=== PATIENT | female | born 1950 | race Caucasian/White ===

== ENCOUNTER 2017-11-21 17:42 | Inpatient (IN) | payer MEDICARE, OTHER ==
[2017-11-21] MEDS ORDERED: Morphine 2 MG/ML SYRINGE ONE (18:50)
[2017-11-21 19:04] LABS: #Basophils 0.1 thou/uL (0.0-0.2); #Lymphocytes 1.4 thou/uL (1.20-3.40); #Monocytes 0.8 thou/uL (0.11-0.59); #Neutrophils 8.9 thou/uL (1.40-6.50); %Basophils 0.5 % (0.0-1.0); %Eosinophils 0.4 % (0.0-10.0); %Lymphocytes 12.3 % (21.0-51.0); %Monocytes 7.3 % (0.0-10.0); %Neutrophils 79.5 % (42.0-75.0); Hemoglobin 13.2 g/dL (12.0-16.0); Mean Corpuscular HGB CONC 32.7 g/dL (32.0-36.0); Mean Corpuscular Hemoglobin 32.3 pg (27.0-31.0); Mean Corpuscular Volume 98.8 fl (81.0-99.0); Mean Platelet Volume 7.1 fL (7.4-10.4); Platelet Count 294 thou/uL (130-400); RBC Distribution Width 13.1 % (11.5-14.5); Red Blood Cell (RBC) Count 4.09 mill/uL (4.20-5.40); White Blood Cell (WBC) Count 11.1 thou/uL (4.8-10.8)
[2017-11-21] MEDS ORDERED: Ondansetron HCl/PF 4 MG/2 ML Vial ONE (19:09)
[2017-11-21 19:13] LABS: PTT 27.2 SEC (22.9-36.1); Prothrombin Time 13.3 SEC (12.0-14.7)
--- NOTE | 2017-11-21 19:20 | RAD ---
AP PELVIS: History: Hip pain, fall. Comparison: None. FINDINGS: There is an intratrochanteric fracture of the left femur with mild varus angulation. It is impacted w ith displacement of the lessor trochanter. IMPRESSION: Impacted varus angulated intertrochanteric fracture of the left femur. POS: [facility]
[2017-11-21 19:22] LABS: ALT (SGPT) 14 U/L (8-55); AST (SGOT) 17 U/L (5-34); Albumin 4.4 g/dL (3.4-4.8); Alkaline Phosphatase 68 U/L (40-150); Anion Gap 14 mmol/L (10-20); BUN (Urea Nitrogen) 30 mg/dL (9.8-20.1); Bilirubin, Total 0.4 mg/dL (0.2-1.2); Calc. Creatinine Clearance 0 mL/min (70-130); Calcium 10.7 mg/dL (7.8-10.44); Carbon Dioxide 25 mmol/L (23-31); Chloride 105 mmol/L (98-107); Estimated GFR-MDRD 36; Globulin 3.2 g/dL (2.4-3.5); Glucose 119 mg/dL (80-115); Potassium 4.3 mmol/L (3.5-5.1); Protein, Total 7.6 g/dL (6.0-8.3); Sodium 140 mmol/L (136-145)
--- NOTE | 2017-11-21 19:24 | RAD ---
LEFT HIP TWO VIEWS: History: Pain. Comparison: None. FINDINGS: There is a comminuted varis angulated impacted intertrochanteric fracture of the left femur. There is medial displacement of the lesser trochanter. The left obturator ring is intact. IMPRESSION: Impacted varis angulated mildly displaced intertrochanteric fracture left femur. POS: [facility]
--- NOTE | 2017-11-21 19:46 | HP ---
DATE OF ADMISSION: 11/21/2017 REQUESTING PHYSICIAN: Dr. Mcgee. ATTENDING PHYSICIAN: Dr. Sapp CONSULTATIONS: Orthopedics, Dr. Garduno HISTORY OF PRESENT ILLNESS: The patient is a 67-year-old woman, who was reportedly wearing socks on a hardwood floor when she slipped and fell landing on her left hip. The patient was marquis t to the emergency department, evaluated, examined and noted to have a left hip fracture at which wiliam aubrey we were asked to evaluate the patient for admission and obtain orthopedic consultation. The patien t denies loss of consciousness or striking her head. She denies shortness of breath, chest pain or d izziness prior to her fall or after. ALLERGIES: . CURRENT MEDICATIONS: Crestor, Benicar, Calcitriol, Prolia. The patient is also currently on a Medro l Dosepak. PAST MEDICAL HISTORY: Hypercalcemia, hyperlipidemia, hypertension, renal disease, stage 3 chronic ki dney disease, anxiety. PAST SURGICAL HISTORY: Bladder sling, vaginal D&C, cholecystectomy. SOCIAL HISTORY: The patient denies drug, alcohol or tobacco use. FAMILY HISTORY: Diabetes and hypertension. REVIEW OF SYSTEMS: A ten-point review of systems is negative unless otherwise stated. PHYSICAL EXAMINATION: VITAL SIGNS: Blood pressure 156/92, heart rate 90, respirations 16, oxygen saturation 98% on room ai r, temperature is 98.6. GENERAL: The patient is resting comfortably in bed. She is alert and oriented x3. Jadon coma sca le is 15. HEENT: Head is normocephalic, atraumatic. Eyes: Extraocular motion intact. PERRLA bilaterally. E ars are atraumatic without discharge. Nose is atraumatic without discharge. Oropharynx is clear. NECK: Nontender. Trachea is midline. No JVD. CHEST: Clear to auscultation with good inspiratory and expiratory effort. HEART: Regular rate and rhythm. ABDOMEN: Soft, flat, nontender with active bowel sounds. Pelvis is stable with tenderness to palpat ion to the left hip consistent with her fracture. BACK: By report is nontender and atraumatic. EXTREMITIES: Neurovascularly intact x4. Pulses are 2+. LABORATORY FINDINGS: White blood cell count 11.1, hemoglobin 13.2, hematocrit 40.4, platelets 294. Chemistries are pending. The patient also has chest x-ray and EKG that are pending. RADIOGRAPHIC REPORTS: AP pelvis shows a displaced left femoral neck fracture. Two views of the left hip again showed a left femoral neck fracture. ASSESSMENT AND PLAN: 1. Status post ground level fall. 2. Left displaced hip fracture. 3. History of stage 3 chronic kidney disease. 4. History of hypertension. Plan will be to admit the patient to the surgical floor. Consultation with Dr. Garduno. He would li ke to do operative intervention tomorrow, so we will make the patient n.p.o. after midnight. She juanpablo l be admitted to the floor for pain control, pulmonary toilet, gastritis and mechanical DVT prophylax is. The evaluation, examination, laboratory and radiographic findings were discussed with Dr. Sapp at the time of dictation.
[2017-11-21 20:40] LABS: Bilirubin Negative (Negative); Blood, Urine Negative (Negative); Clarity CLEAR (Clear); Glucose, Urine (Dipstick) Negative (Negative); Leukocyte Negative (Negative); Nitrite Negative (Negative); Protein, Urine (Dipstick) Negative (Neg-Trace); Urobilinogen 0.2 mg/dL (0.2-1.0)
--- NOTE | 2017-11-21 21:11 | RAD ---
CHEST ONE VIEW: History: Pre op. Comparison: None. FINDINGS: Lungs are clear. No pneumothorax or effusion. Cardiac silhouette and mediastinal contours are within normal limits. Upper lobe calcified granuloma. Atelectasis of the lingula. Likely noncompressive deformity of the midthoracic spine. IMPRESSION: No acute intrathoracic abnormality. POS: [facility]
[2017-11-21] MEDS ORDERED: Morphine 4 MG/ML VIAL ONE (22:52)
[2017-11-21] MEDS ORDERED: Sodium Chloride 0.9% 1,000 ML IV SCH (23:50)
[2017-11-21] MEDS ORDERED: Ondansetron HCl/PF 4 MG/2 ML Vial IVP PRN (23:50)
[2017-11-21] MEDS ORDERED: Acetaminophen 325 MG TAB PO PRN (23:50)
[2017-11-21] MEDS ORDERED: Morphine 4 MG/ML VIAL SLOW IVP PRN (23:50)
[2017-11-21] MEDS ORDERED: Ondansetron ODT 4 MG TAB SL PRN (23:50)
[2017-11-22] MEDS ORDERED: Ondansetron HCl/PF 4 MG/2 ML Vial IVP PRN ×3 (00:09→17:05)
[2017-11-22] MEDS ORDERED: Dextrose 50% Abboject 50 ML SYRINGE SLOW IVP PRN (00:09)
[2017-11-22] MEDS ORDERED: HYDROcodone/Acetaminophen 10/325 mg Tablet PO PRN ×2 (00:09)
[2017-11-22] MEDS ORDERED: hydrALAZINE 20 MG/ML VIAL SLOW IVP PRN (00:09)
[2017-11-22] MEDS ORDERED: Dextrose 5% in Water 1,000 ML IV PRN (00:09)
[2017-11-22] MEDS ORDERED: Ondansetron ODT 4 MG TAB PO PRN ×2 (00:09→16:26)
[2017-11-22] MEDS ORDERED: Morphine 4 MG/ML VIAL SLOW IVP PRN (00:09)
[2017-11-22] MEDS ORDERED: Morphine 2 MG/ML SYRINGE IVP PRN (00:09)
[2017-11-22] MEDS ORDERED: CEFAZOLIN/Water 2 GM/20 ML SYRINGE SLOW IVP SCH (00:15)
[2017-11-22] MEDS ORDERED: Sodium Chloride 0.9% 1,000 ML IV SCH (00:15)
[2017-11-22] MEDS ORDERED: Hydrocortisone Sod Succ/PF 100 mg/2 ml Vial IVP SCH (00:15)
[2017-11-22] MEDS ORDERED: Famotidine 20 MG TAB PO SCH (00:30)
[2017-11-22] MEDS ORDERED: Morphine 2 MG/ML SYRINGE SLOW IVP PRN (00:48)
[2017-11-22 00:51] LABS: Troponin I Less than 0.010 ng/mL (< 0.028)
--- NOTE | 2017-11-22 01:26 | PRG ---
DATE OF SERVICE: 11/22/2017 SUBJECTIVE: Jena Ontiveros is a 67-year-old female who sustained a mechanical fall once in 2018. She wa s found to have hip fracture and admitted for operative management of her injury. Patient was hemody namically stable in the emergency room; however, just prior to her transfer to the floor, she was giv en 4 mg of morphine IV. Upon arrival to the floor, the staff had a difficult time obtaining a blood pressure. Eventually, they were able to get a systolic blood pressure. Blood pressure is approximat julia 70/40 at which time I was called. Additionally, the patient had chief complaint of chest tightne ss. Upon my evaluation, the patient is alert and oriented x3. She has no diaphoresis. She describe s her chest discomfort as a band-like tightness that wraps around the entirety of her anterior chest. She states that she had similar discomfort associated with her gallbladder many years ago. Most re cent blood pressure is 77/46. The patient states the pain has been present since after her fall; how ever, during her admission, she denied any chest pain or discomfort. The patient states the pain chiu s not travel or radiate. There is no associated back pain. She localizes no other complaint. PHYSICAL EXAMINATION: VITAL SIGNS: Blood pressure as above, heart rate in the 70s, respirations 16, O2 sat 97% on room air . GENERAL: The patient is resting in bed, alert and oriented x3. PULMONARY: Normal work of breathing. LUNGS: Symmetric rise. Breathing is nonlabored. ABDOMEN: Soft, nontender, nondistended. MUSCULOSKELETAL: Moves all extremities x4. NEUROLOGIC: No focal deficits noted. GCS is 15. ASSESSMENT AND PLAN: Acute hypotension. EKG has been obtained. There is no evidence of non-ST elev ated myocardial infarction. Patient has received a 250 mL fluid bolus. Last systolic blood pressure is 95 with a mean arterial pressure of 70. Urine output has been 400 mL since placement of Bull. The patient states that band-like chest discomfort has improved. Cardiac enzymes and serum cortisol have been ordered and have been drawn by labs. Patient is to receive 100 mg of IV hydrocortisone at this time. We will follow laboratory data. Trauma attending has been notified of incident. If trop onins within normal limits, patient to remain on surgical floor. We will continue to monitor. Analisa angeles laboratory findings and blood pressure closely. Assessment and plan have been discussed with the patient and daughter at bedside who are both in agre ement and vocalized their understanding. Additional time at bedside, 28 minutes.
[2017-11-22 01:52] VITALS: BMI 30.6
[2017-11-22] MEDS: Hydrocortisone Sod Succ/PF 100 mg/2 ml Vial IVP SCH ×3 (02:13→18:21)
[2017-11-22] MEDS: Sodium Chloride 0.9% 1,000 ML IV SCH ×2 (02:14→18:28)
[2017-11-22] MEDS ORDERED: Sodium Chloride 0.9% 250 ML IV SCH (04:30)
[2017-11-22 05:36] LABS: #Lymphocytes 0.7 thou/uL (1.20-3.40); #Monocytes 0.9 thou/uL (0.11-0.59); %Eosinophils 0.2 % (0.0-10.0); %Lymphocytes 5.2 % (21.0-51.0); %Monocytes 6.4 % (0.0-10.0); %Neutrophils 88.2 % (42.0-75.0); Hemoglobin 10.7 g/dL (12.0-16.0); Mean Corpuscular HGB CONC 32.7 g/dL (32.0-36.0); Mean Corpuscular Hemoglobin 32.4 pg (27.0-31.0); Mean Platelet Volume 7.5 fL (7.4-10.4); Platelet Count 235 thou/uL (130-400); RBC Distribution Width 13.1 % (11.5-14.5); White Blood Cell (WBC) Count 13.6 thou/uL (4.8-10.8)
[2017-11-22 06:04] LABS: Anion Gap 14 mmol/L (10-20); BUN (Urea Nitrogen) 26 mg/dL (9.8-20.1); Calc. Creatinine Clearance 55 mL/min (70-130); Calcium 9.4 mg/dL (7.8-10.44); Carbon Dioxide 21 mmol/L (23-31); Chloride 108 mmol/L (98-107); Estimated GFR-MDRD 48; Glucose 139 mg/dL (80-115); Potassium 4.2 mmol/L (3.5-5.1); Sodium 139 mmol/L (136-145)
[2017-11-22 06:09] LABS: CKMB 0.9 ng/mL (0-6.6); Troponin I Less than 0.010 ng/mL (< 0.028)
[2017-11-22] MEDS ORDERED: Prevnar 13-Val Conj/PF 0.5 ML SYRINGE IM ONE (09:00)
--- NOTE | 2017-11-22 13:25 | CON ---
DATE OF CONSULTATION: 11/22/2017 HISTORY OF PRESENT ILLNESS: Ms. Ontiveros is a 67-year-old white female who was at home. She is wearing socks and slipped on the hardwood floor and fell onto her left hip, had immediate pain, deformity in the left hip. The patient was brought to the emergency room, which revealed a displaced intertrochan teric fracture of the left hip. The patient has no neurologic complaints in the left lower extremity . No other complaints elsewhere. PAST MEDICAL HISTORY: Medical illnesses are hypertension, renal disease, hyperlipidemia, anxiety. CURRENT MEDICATIONS: Crestor, Benicar, calcitriol, Prolia. The patient currently is on a Medrol Dos epak. ALLERGIES: . PAST SURGICAL HISTORY: Bladder sling, vaginal D&C and cholecystectomy. PHYSICAL EXAMINATION: GENERAL: The patient is a pleasant white female, alert and oriented x3, cooperative with the examina tion. VITAL SIGNS: Patient is afebrile. Latest vital signs, pulse 78, respiratory rate 14, blood pressure 121/80, O2 saturation 96. EXTREMITIES: The patient is able to move both upper extremities without pain. She is able to move t he right lower extremity without pain. The left lower extremity is shortened and externally rotated. No attempts were made at movement of the left hip since known she has a fracture, the left foot is neurovascularly intact. X-RAY FINDINGS: X-rays were reviewed and the patient has a displaced shortened intertrochanteric fra cture of the left hip. IMPRESSION: 1. Displaced intertrochanteric fracture of the left hip. 2. Stage 3 chronic kidney disease. 3. Hypertension. PLAN: The patient will require open reduction internal fixation of the left hip. Potential risks wi th the condition of surgery include but are not limited to infection, bleeding, pain, damage to blood vessels or nerves, nonunion, malunion. The patient may require additional surgery. The patient and her family's questions were answered and agreed to the procedure.
[2017-11-22] MEDS ORDERED: Fentanyl 100 MCG/2 ML VIAL ONE (13:56)
[2017-11-22] MEDS ORDERED: CEFAZOLIN/Water 2 GM/20 ML SYRINGE ONE (14:22)
[2017-11-22] MEDS ORDERED: traMADol HCl 50 MG TAB PO PRN (16:26)
[2017-11-22] MEDS ORDERED: Bisacodyl 10 MG SUPP PR PRN (16:26)
[2017-11-22] MEDS ORDERED: Fleet Enema 133 ML BOT PR PRN (16:26)
[2017-11-22] MEDS ORDERED: Milk Of Magnesia 30 ML UDCUP PO PRN (16:26)
[2017-11-22] MEDS ORDERED: Cepastat Lozenges 1 LOZ PO PRN (16:26)
--- NOTE | 2017-11-22 16:53 | RAD ---
TWO INTRAOPERATIVE FLUOROSCOPIC IMAGES LEFT HIP: Date: 11-22-17 History: ORIF left hip. FINDINGS: Comparison is made with left hip from 11-21-17. There is an intramedullary perla with dynamic compression type screw as well as interlocking screw fixi ng the intertrochanteric left hip fracture. There has been improvement in alignment of the fracture f ragments. No hardware complication is seen. IMPRESSION: Internal fixation of intertrochanteric left hip fracture. POS: [facility]
[2017-11-22] MEDS ORDERED: Ketorolac Tromethamine 30 MG/ML VIAL ONE (16:54)
[2017-11-22] MEDS ORDERED: Dexamethasone 20 MG/5 ML VIAL ONE (16:54)
[2017-11-22] MEDS ORDERED: Glycopyrrolate 0.2 MG/ML 5 ML SYRINGE ONE (16:54)
[2017-11-22] MEDS ORDERED: ePHEDrine/0.9% NaCl/PF SYRINGE 50 mg/10 ml ONE (16:54)
[2017-11-22] MEDS ORDERED: Lidocaine 1% PF 5 ML VIAL ONE (16:54)
[2017-11-22] MEDS ORDERED: PHENYLEPHRINE-NS 100 MCG/ML 10 ML SYRINGE ONE (16:54)
[2017-11-22] MEDS ORDERED: Ondansetron HCl/PF 4 MG/2 ML Vial ONE (16:54)
[2017-11-22] MEDS ORDERED: Propofol 200 MG/20 ML VIAL ONE (16:54)
[2017-11-22] MEDS ORDERED: Promethazine HCl 25 MG/ML VIAL IM PRN (17:05)
[2017-11-22] MEDS ORDERED: Promethazine HCl 25 MG/ML VIAL SLOW IVP PRN (17:05)
[2017-11-22] MEDS ORDERED: Ketorolac Tromethamine 30 MG/ML VIAL IVP SCH (18:00)
[2017-11-22] MEDS ORDERED: Cyclobenzaprine 10 MG TAB PO PRN (18:51)
--- NOTE | 2017-11-22 19:51 | OP ---
DATE OF OPERATION: 11/22/2017 PREOPERATIVE DIAGNOSIS: Displaced intertrochanteric fracture of the left hip. POSTOPERATIVE DIAGNOSIS: Displaced intertrochanteric fracture of the left hip. PROCEDURE: Open reduction and internal fixation of intertrochanteric fracture of the left hip utiliz ing a trochanteric fixation nail. SURGEON: Jabari Garduno M.D. ANESTHESIA: General. TECHNIQUE: The patient was given preoperative IV antibiotics, taken to the operating room, and place d in supine position. Satisfactory general anesthesia was performed. The patient was placed on the fracture table in the supine position and all bony prominences were well padded and traction was appl ied to a well-padded left foot and ankle and C-arm was used to verify good alignment of the intertroc hanteric fracture of the left proximal femur AP, lateral, and multiple oblique views. Lateral aspect of the hip and thigh was then sterilely prepped and draped in usual fashion. A 2.5 incision was mad e on the lateral aspect of the hip just proximal to the greater trochanter; where under fluoroscopic visualization, a guide pin was placed to the greater trochanter. Once appropriate placement was conf irmed, the wire was overreamed and then a 9 mm x 170 mm in length trochanteric fixation nail was inse rted into the proximal femur to the appropriate level. Then, using the guide arm on the nail through a separate 2-inch incision on the lateral aspect of the thigh, through the lateral thigh wound into the lateral aspect of the femur, a guidewire was placed and again was confirmed with the C-arm in AP and lateral planes to be in good position in the neck and head. Appropriate size screw was measured. The lateral cortex was overreamed and a 95-mm helical blade was placed through the trochanteric quinn l into the femoral neck and head and then the locking device was used to lock the helical blade to th e trochanteric fixation nail through the guiding arm, but through the same incision in the lateral as pect of the thigh. Hole was drilled through the distal aspect of the perla, and in the femur an approp riate size nail was measured and a 5.0 distal locking nail was inserted into the femur and into the d istal aspect of the trochanteric nail. After confirming good position and good alignment of the frac ture, the arm was removed from the trochanteric fixation nail. The wounds were copiously irrigated w ith antibiotic solution. The wounds were closed using #1 Vicryl for the deeper layer and the skin wa s closed with skin devaughn. Sterile dressing was applied. The patient was taken out of traction. S he was awakened, extubated, and transferred to recovery room in stable condition. ESTIMATED BLOOD LOSS: 120 mL. COMPLICATIONS: None.
--- NOTE | 2017-11-22 20:39 | PRG ---
DATE OF SERVICE: 11/22/2017 SUBJECTIVE: Jena Ontiveros is a 67-year-old female who sustained a mechanical fall. She is postop day 0 status post hip fracture repair. Postoperatively, the patient is doing well and [facility] She is hemodynamically stable. She vocalized no complaints, eating. OBJECTIVE: VITAL SIGNS: Reviewed and stable. The patient is afebrile. Resting in bed in no acute distress. B reathing is nonlabored. ASSESSMENT AND PLAN: As documented in the daily progress note. Continue care as ordered. Continue to monitor.
[2017-11-22] MEDS: Senokot S 8.6-50 MG TAB PO SCH (21:40)
[2017-11-22] MEDS: Famotidine 20 MG TAB PO SCH (21:41)
[2017-11-22] MEDS: CEFAZOLIN/Water 2 GM/20 ML SYRINGE SLOW IVP SCH (21:43)
[2017-11-23] MEDS: Hydrocortisone Sod Succ/PF 100 mg/2 ml Vial IVP SCH ×3 (01:37→18:03)
[2017-11-23] MEDS: CEFAZOLIN/Water 2 GM/20 ML SYRINGE SLOW IVP SCH (06:25)
[2017-11-23 06:56] LABS: Hemoglobin 8.9 g/dL (12.0-16.0); Mean Corpuscular HGB CONC 32.6 g/dL (32.0-36.0); Mean Corpuscular Hemoglobin 32.6 pg (27.0-31.0); Mean Corpuscular Volume 99.7 fl (81.0-99.0); Platelet Count 200 thou/uL (130-400); Red Blood Cell (RBC) Count 2.73 mill/uL (4.20-5.40); White Blood Cell (WBC) Count 9.5 thou/uL (4.8-10.8)
[2017-11-23 07:14] LABS: Magnesium 2.2 mg/dL (1.6-2.6); Phosphorus 3.1 mg/dL (2.3-4.7)
[2017-11-23] MEDS ORDERED: traMADol HCl 50 MG TAB PO PRN (07:46)
[2017-11-23] MEDS: Acetaminophen 500 MG TAB PO SCH ×3 (09:06→20:50)
[2017-11-23] MEDS: traMADol HCl 50 MG TAB PO SCH ×3 (09:07→20:50)
[2017-11-23] MEDS: Multivitamin W/ Minerals 1 TAB PO SCH (09:07)
[2017-11-23] MEDS: Senokot S 8.6-50 MG TAB PO SCH ×2 (09:08→21:05)
[2017-11-23] MEDS: Ferrous Gluconate 324 MG TAB PO SCH ×2 (09:08→20:50)
--- NOTE | 2017-11-23 19:29 | PRG ---
DATE OF SERVICE: 11/23/2017 ATTENDING PHYSICIAN: David aSpp DO. SUBJECTIVE: The patient is postoperative day #1 status post ORIF of left intertrochanteric hip fract ure. She has had no complications postoperatively. Pain has been well controlled. OBJECTIVE: VITAL SIGNS: Temperature 97.6, pulse 68, respirations 16, O2 sat 96%, blood pressure 95/60. GENERAL: Lying in bed, in no acute distress. HEENT: Atraumatic, normocephalic. PULMONARY: Bilateral breath sounds clear to auscultation. No respiratory distress. CARDIOVASCULAR: Regular rate and rhythm. Heart sounds normal. ABDOMEN: Soft, nontender, nondistended. EXTREMITIES: Dressing intact to left hip area. Cap refill brisk. Neurovascular intact in all extre mities. NEUROLOGIC: GCS 15. Awake, alert, oriented x3. ASSESSMENT: 1. Status post ground level fall. 2. Status post left hip fracture. 3. Status post open reduction internal fixation, left hip. PLAN: 1. Mobilize with physical and occupational therapy. 2. Continue current oral analgesia. 3. Discontinue IV fluids. 4. Discontinue Bull catheter on postoperative day #2. 5. Case management consults for discharge planning. Anticipate rehabilitation. 6. DVT prophylaxis when okay with Orthopedic Surgery. The patient was reviewed with Dr. Sapp, attending trauma surgeon, who agrees with the assessment and plan.
[2017-11-23] MEDS: Famotidine 20 MG TAB PO SCH (22:25)
[2017-11-24] MEDS: Hydrocortisone Sod Succ/PF 100 mg/2 ml Vial IVP SCH ×2 (01:19→09:16)
[2017-11-24] MEDS: Acetaminophen 500 MG TAB PO SCH ×3 (01:20→14:58)
[2017-11-24] MEDS: traMADol HCl 50 MG TAB PO SCH ×3 (01:21→14:59)
[2017-11-24 07:17] LABS: Anion Gap 8 mmol/L (10-20); BUN (Urea Nitrogen) 23 mg/dL (9.8-20.1); Calc. Creatinine Clearance 69 mL/min (70-130); Carbon Dioxide 25 mmol/L (23-31); Chloride 111 mmol/L (98-107); Estimated GFR-MDRD 63; Glucose 126 mg/dL (80-115); Magnesium 2.2 mg/dL (1.6-2.6); Potassium 4.8 mmol/L (3.5-5.1); Sodium 139 mmol/L (136-145)
[2017-11-24 09:00] VITALS: TEMP 98.3
[2017-11-24] MEDS ORDERED: Calcitriol 0.25 MCG CAP PO SCH (09:00)
[2017-11-24] MEDS: Senokot S 8.6-50 MG TAB PO SCH (09:15)
[2017-11-24] MEDS: Ferrous Gluconate 324 MG TAB PO SCH (09:15)
[2017-11-24] MEDS: Multivitamin W/ Minerals 1 TAB PO SCH (09:15)
[2017-11-24 15:54] VITALS: BP 110/73
--- NOTE | 2017-11-25 01:54 | DIS ---
DATE OF ADMISSION: 11/21/2017 DATE OF DISCHARGE: 11/24/2017 DATE OF OPERATION: 11/22/2017 ADMITTING PHYSICIAN: David Sapp D.O. CONSULTING PHYSICIAN: Dr. Jabari Garduno, Orthopedics. REASON FOR HOSPITALIZATION: Ground level fall with hip pain. HOSPITAL DIAGNOSIS: Left displaced hip fracture. PROCEDURES PERFORMED: Open reduction and internal fixation of intertrochanteric fracture of the left hip utilizing a trochanteric fixation nail. SURGEON: Jabari Garduno M.D. PATIENT'S DISCHARGE CONDITION: Good. DISPOSITION: Discharged to home. BRIEF HISTORY OF HOSPITALIZATION: The patient is a 67-year-old female who reportedly was wearing soc ks in a hardwood floor when she slipped and fell landing on her left hip. Workup in the ED identifie d a left hip fracture. She was admitted to the hospital by Trauma Services. Dr. Garduno, Orthopedic s, was consulted. He took the patient to the OR for fixation of her hip. Postoperative day #1, she mobilized with physical and occupational therapy. Pain was well controlled using oral analgesia. Meir burgos was cleared by therapy services to discharge to home with outpatient therapy. She was started on a spirin b.i.d. for DVT prophylaxis. She will be discharged to home with her family. She is weightbea ring as tolerated. She will receive outpatient therapy for which a prescription has been provided. She can resume a regular diet. She has been given a prescription for tramadol, Flexeril, and iron, w hich she was started on in the hospital. She will continue aspirin 81 mg twice daily until discontin ued by her orthopedic surgeon or PCP. She needs to follow up with Dr. Garduno in 2 weeks. She can f ollow up with her PCP. There is no need for her to follow up with Trauma Services. The patient was seen and examined with Dr. Sapp, attending trauma surgeon, who agrees with the asses sment and discharge plan.
== END 2017-11-24 17:25 | disposition home or self-care (01) | DRG 482 ==
LOC: ERS 17:42 → SURG A 18:30
PROVIDERS: ADMIT Orthopaedic Surgery; ATTEND Orthopaedic Surgery
PROC: 0QS704Z Reposition Left Upper Femur with Internal Fixation Device, Open Approach (ICD-10-PCS; principal; 2017-11-22)
DX: S72.142A Displaced intertrochanteric fracture of left femur, initial encounter for closed fracture (principal); I95.9 Hypotension, unspecified; N18.3 Chronic kidney disease, stage 3 (moderate); I12.9 Hypertensive chronic kidney disease with stage 1 through stage 4 chronic kidney disease, or unspecified chronic kidney disease; Z90.49 Acquired absence of other specified parts of digestive tract
CPT/HCPCS: 36415; 36416; 71045; 72170; 76001; 80048; 80053; 81003; 82533; 82553; 83735; 84100; 84484; 85025; 85027; 85610; 85730; 93005; 93010; 96374; 96375; 96376; C1713; G0390; G8978-GP-CM; G8979-GP-CJ; G8987-GO-CK; G8988-GO-CI; J1100; J1720; J1885; J2001; J2270; J2405; J2704; J3010; P9045

== ENCOUNTER 2018-12-22 04:48 | Outpatient (CLI) | payer MEDICARE ==
[2018-12-22 16:26] LABS: #Basophils 0.1 thou/uL (0.0-0.2); #Eosinphils 0.2 thou/uL (0.0-0.7); #Lymphocytes 1.5 thou/uL (1.20-3.40); #Monocytes 0.7 thou/uL (0.11-0.59); #Neutrophils 4.6 thou/uL (1.40-6.50); %Basophils 0.9 % (0.0-1.0); %Eosinophils 2.9 % (0.0-10.0); %Lymphocytes 20.9 % (21.0-51.0); %Monocytes 10.5 % (0.0-10.0); %Neutrophils 64.8 % (42.0-75.0); Hemoglobin 12.6 g/dL (12.0-16.0); Mean Corpuscular HGB CONC 32.6 g/dL (32.0-36.0); Mean Corpuscular Hemoglobin 32.1 pg (27.0-31.0); Mean Corpuscular Volume 98.4 fL (78.0-98.0); Mean Platelet Volume 7.3 fL (7.4-10.4); Platelet Count 242 thou/uL (130-400); RBC Distribution Width 12.5 % (11.5-14.5); Red Blood Cell (RBC) Count 3.92 mill/uL (4.20-5.40)
[2018-12-22 16:46] LABS: ALT (SGPT) 10 U/L (8-55); AST (SGOT) 17 U/L (5-34); Albumin 4.5 g/dL (3.4-4.8); Alkaline Phosphatase 65 U/L (40-150); Anion Gap 11 mmol/L (10-20); BUN (Urea Nitrogen) 22 mg/dL (9.8-20.1); Bilirubin, Total 0.4 mg/dL (0.2-1.2); Calc. Creatinine Clearance 0 mL/min (70-130); Carbon Dioxide 26 mmol/L (23-31); Chloride 109 mmol/L (98-107); Estimated GFR-MDRD 43; Globulin 2.9 g/dL (2.4-3.5); Glucose 96 mg/dL (80-115); Potassium 4.4 mmol/L (3.5-5.1); Protein, Total 7.4 g/dL (6.0-8.3); Sodium 142 mmol/L (136-145)
--- NOTE | 2018-12-22 17:23 | RAD ---
CHEST TWO VIEWS: 12/22/18 HISTORY: Preoperative exam. COMPARISON: None. FINDINGS: Slight elongation of the aorta. Upper normal cardiac silhouette. The pulmonary vessels and hilum are normal. Costophrenic angles are clear. No masses or consolidation. No pneumothorax or osseous abnorma lities. IMPRESSION: No acute cardiopulmonary process. POS: [facility]
== END 2018-12-22 04:49 | disposition home or self-care (01) ==
LOC: LABBT 04:48
PROVIDERS: ATTEND Specialist
DX: Z01.818 Encounter for other preprocedural examination (principal); C50.912 Malignant neoplasm of unspecified site of left female breast
CPT/HCPCS: 71046; 80053; 85025; 93005; 93010

== ENCOUNTER 2018-12-23 06:26 | Inpatient (IN) | payer MEDICARE ==
--- NOTE | 2018-12-22 08:02 | HP ---
HISTORY OF PRESENT ILLNESS: Jena Ontiveros is a 68-year-old female, who lives in [place], but is staying with her daughter, who lives in [place], [place]. The patient has seen Dr. Humphries regarding the left breast cancer. The patient in [place], [place], had a screening mammogram on December 06, 2018. She had mammograms and ultrasound noting a 1.3 cm spiculated lesion in the outer left breast approximately 3 o'clock Radian as well as a small chronic fibroadenoma and a small 6 mm node. Ultrasound suggested a 1.7 x 1.1 x 1.4 cm density at 3 o'clock Radian about 8 cm from the nipple. Just behind this was a 6 mm node seen on mammogram. 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 I had discussed with the patient treatment options including mastectomy without radiation versus partial mastectomy, sentinel node biopsy, which would probably require postoperative radiation therapy and oral chemotherapy. Discussing the merits of both options, she desires breast preservation. I have discussed this per telephone with Dr. Humphries and he is in agreement. Plan at this time is to proceed with ultrasound-directed needle localization, lymphoscintigraphy, and then under anesthesia sentinel node biopsy with Lymphazurin blue injection, partial mastectomy after needle localization of the nonpalpable outer left breast, 1.7 cm tumor measured by ultrasound. She understands possibility of reoperation for the unlikely event that she had positive margins or the possibility of return for node dissection, which would be unlikely in early stage disease. The patient's family history is negative for breast cancer. She is a 4, para 3, one miscarriage, first at 20 years of age. She had a colonoscopy on August 2018, that was normal in [place]. PAST SURGICAL HISTORY: Facial cyst removed, ORIF of left hip in 2017 after a fall, bladder sling, cholecystectomy, dilatation and curettage after miscarriage. She has a history of hypertension, elevated cholesterol, osteoporosis, and anxiety. MEDICATIONS: Include Benicar 20 mg a day, Crestor 10 mg a day, calcitriol a day, Prolia injections as needed, Xanax 0.25 mg b.i.d. as needed. ALLERGIES: , LEVAQUIN CAUSES WEAKNESS ALONG WITH JOINT PAIN. SHE GETS RASH FROM SOME ADHESIVES. NOTED ABOVE, SHE HAD A MAMMOGRAM AND ULTRASOUND, [place], NOVEMBER OF 2018, AND BIOPSY OF LEFT BREAST. PAST MEDICAL HISTORY: Mild chronic kidney disease, followed by a radiology services manager in [place]. Her primary care physician is Dr. Fredy Crespo, [place], . Urologist, Dr. Yoel Cerda, [place], . Christian Education Director, Dr. Jose Clay, [place], . Plant And Instrument Engineer, Dr. Jayne Clay, [place], . Orthopedic surgeon, Dr. Jabari Garduno, [place]. ENT, Dr. Saul Cerda. Oncologist, Dr. Humphries. REVIEW OF SYSTEMS: Ten-point noncontributory. No history of cardiopulmonary disease. PHYSICAL EXAMINATION: VITAL SIGNS: 163 pounds, 60 inches, 146/83, 73 heart rate, 99 degrees. HEAD, EARS, EYES, NOSE, AND THROAT: Unremarkable. LUNGS: Clear to auscultation. CARDIAC: Regular rate and rhythm without murmur or gallop. ABDOMEN: Soft and nontender. EXTREMITIES: Unremarkable, palpable pulses. NEUROLOGICAL: Intact. No focal deficits. SKIN: Normal. Sclerae nonicteric. Axilla without palpable masses. Ecchymosis, outer left breast indicative of recent biopsy left breast. No palpable abnormalities of the breast. No palpable masses in the breast. Skin and areola nipple are normal, breast. ASSESSMENT AND PLAN: 1. Left breast cancer, ER strongly positive, IA negative, HER2 positive, 3+, 1.7 cm tumor mass localized radiologically 6 cm from the nipple, outer left breast, 3 o'clock Radian, nonpalpable on exam. Family history is negative for breast cancer. Plan is for operative intervention as discussed above. We will plan follow up with Dr. Humphries and myself in 3 to 5 days postoperatively. Plan outpatient surgery. She understands risks and benefits of the procedures as outlined above and consents. 2. Mild chronic kidney disease. 3. Osteoporosis. 4. Hypertension. 5. Elevated cholesterol. 6. Mild hyperparathyroidism related to her chronic kidney disease. Job ID: [id number]
[2018-12-23] MEDS ORDERED: Sodium Bicarbonate 2.5 MEQ/5 ML VIAL ONE (06:40)
[2018-12-23] MEDS ORDERED: Lidocaine 1% PF 5 ML VIAL ONE ×2 (06:41→15:49)
--- NOTE | 2018-12-23 09:36 | ULT ---
ULTRASOUND GUIDED NEEDLE LOCALIZATION: DATE: 12/23/2018. PROVIDED CLINICAL HISTORY: Left breast mass. FINDINGS: Correlation with ultrasound-guided breast biopsy of 12/06/2018. Informed consent was obtained from th e patient. The patient was placed on the sonography table in the supine position and the previously described 3 o'clock left breast mass was localized. The skin overlying this lesion was prepped and d raped in the usual sterile manner. The soft tissues were infiltrated with 1% buffered Lidocaine. Un bryan continuous sonographic guidance, a 5 cm [place] needle was advanced into the lesion and the wire de ployed. No immediate complications. IMPRESSION: Technically successful ultrasound-guided left breast needle localization. POS: [facility]
[2018-12-23] MEDS ORDERED: Fentanyl 250 MCG/5 ML VIAL ONE (11:03)
[2018-12-23] MEDS ORDERED: Fentanyl 100 MCG/2 ML VIAL ONE (13:06)
[2018-12-23] MEDS ORDERED: Ketorolac Tromethamine 30 MG/ML VIAL ONE (14:02)
[2018-12-23] MEDS ORDERED: CEFAZOLIN 2 GM/50 ML BAG ONE (14:02)
[2018-12-23] MEDS ORDERED: Lidocaine 1% w/Epinephrine 1:100K 20 ML VIAL ONE (14:08)
[2018-12-23] MEDS ORDERED: Isosulfan Blue 50 MG/5 ML VIAL ONE (14:08)
[2018-12-23] MEDS ORDERED: Bupivacaine 0.25% HCL 30 ML VIAL ONE (14:08)
--- NOTE | 2018-12-23 15:00 | NM ---
RADIONUCLIDE LYMPHOSCINTIGRAPHY LEFT BREAST: HISTORY: Left breast cancer. FINDINGS: After explaining the procedure and answering all questions, the periareolar aspect of the left breast was cleansed. Sterile technique was used to carefully inject a total volume of 1 cc liquid containi ng 377 mCi Technetium 99m filtered sulfur colloid in 4 equal aliquots into the dermis at the 12 o'terri ck, 6 o'clock, 3 o'clock, and 9 o'clock periareolar aspect of the left breast. Injection sites were carefully massaged by the patient to diffuse the liquid and imaging was performed. Images did not show accumulation of radiotracer at the left axilla or the mediastinum. Imaging was c arried out to 3 hours. IMPRESSION: Nonvisualization of sentinel lymph node with 3 hours imaging of left breast lymphoscintigraphy. The patient was sent to day surgery in good condition. POS: [facility]
[2018-12-23] MEDS ORDERED: PHENYLEPHRINE-NS 100 MCG/ML 10 ML SYRINGE ONE ×2 (15:42→15:49)
[2018-12-23] MEDS ORDERED: ePHEDrine 50 MG/ML VIAL ONE (15:49)
[2018-12-23] MEDS ORDERED: PROPOFOL 200 MG/20 ML VIAL ONE (15:49)
[2018-12-23] MEDS ORDERED: Rocuronium Bromide 10 MG/ML (10ML VIAL) ONE (15:49)
[2018-12-23] MEDS ORDERED: Ondansetron PF 4 MG/2 ML Vial ONE (15:49)
[2018-12-23] MEDS ORDERED: Glycopyrrolate 0.2 MG/ML 5 ML SYRINGE ONE (15:49)
--- NOTE | 2018-12-23 15:54 | MMO ---
SURGICAL SPECIMEN RADIOGRAPH: Date: 12/23/18 PROVIDED CLINICAL HISTORY: Status post lumpectomy. FINDINGS: Image of lumpectomy specimen submitted, which contains the biopsy clip and the needle localization wi re. Results telephoned to Dr. Carter in the OR at 1543 hours on 12/23/18. IMPRESSION: As above. CODE CR. POS: [facility]
[2018-12-23] MEDS ORDERED: Albumin 25% 100 ML ONE (17:35)
[2018-12-23 19:05] LABS: #Lymphocytes 0.8 thou/uL (1.20-3.40); #Monocytes 0.4 thou/uL (0.11-0.59); #Neutrophils 6.1 thou/uL (1.40-6.50); %Basophils 0.1 % (0.0-1.0); %Eosinophils 0.1 % (0.0-10.0); %Lymphocytes 10.4 % (21.0-51.0); %Monocytes 4.8 % (0.0-10.0); %Neutrophils 84.5 % (42.0-75.0); Hemoglobin 12.4 g/dL (12.0-16.0); Mean Corpuscular HGB CONC 32.7 g/dL (32.0-36.0); Mean Corpuscular Hemoglobin 32.2 pg (27.0-31.0); Mean Corpuscular Volume 98.4 fL (78.0-98.0); Mean Platelet Volume 7.4 fL (7.4-10.4); Platelet Count 243 thou/uL (130-400); RBC Distribution Width 12.4 % (11.5-14.5); Red Blood Cell (RBC) Count 3.86 mill/uL (4.20-5.40); White Blood Cell (WBC) Count 7.2 thou/uL (4.8-10.8)
[2018-12-23] MEDS: Sodium Chloride 0.45% 1,000 ML IV SCH (19:15)
[2018-12-23 19:43] LABS: Anion Gap 16 mmol/L (10-20); BUN (Urea Nitrogen) 18 mg/dL (9.8-20.1); Calc. Creatinine Clearance 53 mL/min (70-130); Calcium 9.1 mg/dL (7.8-10.44); Carbon Dioxide 18 mmol/L (23-31); Chloride 113 mmol/L (98-107); Estimated GFR-MDRD 47; Glucose 126 mg/dL (80-115); Potassium 3.2 mmol/L (3.5-5.1); Sodium 144 mmol/L (136-145)
[2018-12-23] MEDS ORDERED: traMADol HCl 50 MG TAB PO PRN ×2 (20:19→20:20)
[2018-12-23] MEDS ORDERED: Acetaminophen 500 MG TAB PO PRN (20:19)
[2018-12-23] MEDS ORDERED: hydrALAZINE 20 MG/ML VIAL SLOW IVP PRN (20:23)
[2018-12-23] MEDS ORDERED: Potassium Chloride 20 MEQ TAB PO SCH (20:45)
--- NOTE | 2018-12-23 21:02 | CON ---
DATE OF CONSULTATION: CHIEF COMPLAINT: Blood pressure being low. REASON FOR CONSULTATION: Consultation from Dr. Carter for hypotension. PRIMARY CARE PHYSICIAN: Dr. Crespo HISTORY OF PRESENT ILLNESS: Ms. Jena Ontiveros is a 68-year-old female with past medical history of hypertension and hyperlipidemia, who was admitted for left breast lumpectomy. The patient has a known history of left breast cancer. While she was in the OR, her blood pressure dropped down to 70s and 80 systolic, and they gave her IV fluids at that time. The patient got like 1.5 L of bolus, which improved her blood pressure to low 90s to 100. The patient, at home, takes Benicar 20 mg twice per day for her blood pressure. Per BP log from home, the patient's blood pressure ranges anywhere from 110s to 140 systolic. The patient denies any chest pain, shortness of breath, abdominal pain, nausea, vomiting, or diarrhea at this point. Dr. Carter was concerned that the patient's blood pressure has dropped and therefore the patient was admitted to the ER. Per daughter, the patient had a hip replacement surgery in the past and during the surgery, her blood pressure also dropped as well. PAST MEDICAL HISTORY: Hypertension, breast cancer, and hyperlipidemia. PAST SURGICAL HISTORY: Hip replacement surgery, cholecystectomy, and lumpectomy. MEDICATIONS: 1. Benicar. 2. Crestor. 3. Calcitriol. ALLERGIES: , LEVAQUIN, ATROPINE, PHENOBARBITAL, ADHESIVE TAPE. SOCIAL HISTORY: The patient denies smoking. Only occasional drinker. Denies illicit drugs. FAMILY HISTORY: Mother had hypertension. REVIEW OF SYSTEMS: 10-point review of system negative other than mentioned in the HPI. PHYSICAL EXAMINATION: VITAL SIGNS: Blood pressure 98/62, heart rate 88, temperature within normal limit, O2 sat 100% on nasal cannula. CONSTITUTIONAL: Alert, oriented. EARS: Extraocular movement intact. HEAD: Atraumatic. NOSE AND THROAT: Grossly normal. NECK: No lymphadenopathy noted. CARDIOVASCULAR: Regular rate and rhythm. No murmur, rubs, or gallops. RESPIRATIONS: Clear bilaterally. The patient has a binder across the chest. ABDOMEN: Soft. Bowel sounds positive. Nontender. EXTREMITIES: Lower extremity; no edema noted. NEUROLOGIC: The patient is alert. SKIN: No rashes noted. PSYCHIATRIC: The patient has a normal mood. DIAGNOSTIC STUDIES: Labs reviewed. CBC and BMP largely unremarkable except for potassium, it is 3.2. Echo pending at this point. ASSESSMENT AND PLAN: 1. Hypotension, likely due to anesthesia from surgery. Pt aSx. Low concern for infection. The patient's blood pressure improved with 1.5 L of IV fluids. We will continue IV fluids as ordered. We will hold off to Benicar at this point. Repeat labs and CXR in the morning. 2. Hypertension. Holding Benicar. Will have hydralazine p.r.n. if blood pressure goes up to uncontrol. 3. Hypokalemia, mild, potassium 3.2. We will replete. Repeat labs in the morning. 4. Deep venous thrombosis prophylaxis as ordered by Dr. Carter. 5. Medical power of admitted attorneys, daughter. 6. Code status is full code. Thank you for your consult, will cont to follow along Job ID: [id number] MTDD
[2018-12-23] MEDS: Sodium Chloride 0.9% 500 ML IV SCH (21:29)
[2018-12-23] MEDS: Enoxaparin Sodium 40 MG/0.4 ML SYRINGE SC SCH (21:30)
[2018-12-24] MEDS: Sodium Chloride 0.9% 500 ML IV SCH (00:01)
[2018-12-24] MEDS: Sodium Chloride 0.45% 1,000 ML IV SCH (01:12)
[2018-12-24] MEDS ORDERED: Sodium Chloride 0.9% 500 ML IVPB ONE (01:30)
[2018-12-24 03:43] LABS: #Eosinphils 0.1 thou/uL (0.0-0.7); #Lymphocytes 0.3 thou/uL (1.20-3.40); #Monocytes 0.5 thou/uL (0.11-0.59); #Neutrophils 10.8 thou/uL (1.40-6.50); %Eosinophils 0.5 % (0.0-10.0); %Lymphocytes 2.3 % (21.0-51.0); %Monocytes 4.1 % (0.0-10.0); %Neutrophils 93.1 % (42.0-75.0); Hemoglobin 11.7 g/dL (12.0-16.0); Mean Corpuscular HGB CONC 32.5 g/dL (32.0-36.0); Mean Corpuscular Hemoglobin 32.1 pg (27.0-31.0); Mean Corpuscular Volume 98.6 fL (78.0-98.0); Mean Platelet Volume 6.9 fL (7.4-10.4); Platelet Count 205 thou/uL (130-400); RBC Distribution Width 12.6 % (11.5-14.5); Red Blood Cell (RBC) Count 3.64 mill/uL (4.20-5.40); White Blood Cell (WBC) Count 11.6 thou/uL (4.8-10.8)
[2018-12-24 03:49] LABS: Bilirubin Negative (Negative); Blood, Urine Small (Negative); Glucose, Urine (Dipstick) Negative (Negative); Leukocyte Moderate (Negative); Nitrite Negative (Negative); Protein, Urine (Dipstick) 30 mg/dL (Neg-Trace); Urobilinogen 0.2 mg/dL (0.2-1.0)
[2018-12-24 03:51] LABS: Clarity Clear (Clear); Specific Gravity, Urine 1.016 (1.002-1.036)
[2018-12-24 03:53] LABS: pH, Urine 5.4 (5.0-9.0)
[2018-12-24 03:55] LABS: Urine Culture Reflex No No
[2018-12-24 04:02] LABS: Bacteria/HPF None Seen HPF (None Seen); Crystals/HPF None Seen HPF (Negative); Hyaline Casts/LPF NONE SEEN LPF (0-3 Hyaline); Other Casts/LPF 0-3 FINELY GRAN LPF (0-3 Hyaline); Oval Fat Bodies/HPF None Seen HPF (None Seen); RBC/HPF 0-3 HPF (0-3); Renal Epithelial None Seen HPF (0-3); Sperm/HPF None Seen HPF (None Seen); Squamous Epithelial None Seen HPF (0-3); Transitional Epithelial NONE SEEN HPF (0-3); Trichomonas/HPF None Seen HPF (None Seen); WBC/HPF 21-50 HPF (0-3); Yeast-All Forms None Seen HPF (None Seen)
[2018-12-24 04:13] LABS: ALT (SGPT) 32 U/L (8-55); AST (SGOT) 48 U/L (5-34); Albumin 3.5 g/dL (3.4-4.8); Alkaline Phosphatase 39 U/L (40-150); Anion Gap 12 mmol/L (10-20); BUN (Urea Nitrogen) 17 mg/dL (9.8-20.1); Bilirubin, Total 0.6 mg/dL (0.2-1.2); Calc. Creatinine Clearance 58 mL/min (70-130); Calcium 8.1 mg/dL (7.8-10.44); Carbon Dioxide 17 mmol/L (23-31); Chloride 113 mmol/L (98-107); Estimated GFR-MDRD 51; Globulin 1.7 g/dL (2.4-3.5); Glucose 132 mg/dL (80-115); Potassium 4.2 mmol/L (3.5-5.1); Protein, Total 5.2 g/dL (6.0-8.3); Sodium 138 mmol/L (136-145)
--- NOTE | 2018-12-24 05:39 | PDOC.EVN ---
Event Note - Event Note Event Note: BP still noted to be in 70-80s after 3L bolus + 1/2 NS IVF 150 cc/hr. Pt is aSX. D-dimer elevated - Switch 1/2 NS to NS - TSH - AM cortisol - CTA chest to r/o PE - If pt becomes sx, pt may need pressors - CXR report pending
[2018-12-24] MEDS: Sodium Chloride 0.9% 1,000 ML IV SCH ×2 (06:14→15:02)
--- NOTE | 2018-12-24 08:15 | RAD ---
SINGLE VIEW OF THE CHEST: COMPARISON: None. HISTORY: Shortness of breath status post surgery. COMPARISON: 12/22/2018. FINDINGS: Single view of the chest shows a normal sized cardiomediastinal silhouette. There is no evidence of c onsolidation, mass, or pleural effusion. The bones are unremarkable. IMPRESSION: No evidence of acute cardiopulmonary disease. POS: [facility]
--- NOTE | 2018-12-24 09:48 | CT ---
CT ARTERIOGRAM CHEST WITH IV CONTRAST AND 3D MIP IMAGING: HISTORY: Elevated D-dimer. FINDINGS: There is good contrast opacification of pulmonary arteries and thoracic aorta. Mild bibasilar lung a telectasis likely related to recent surgery and intubation. Gas and fluid are present at the left ax illa and extending into the inferior aspect of the left breast. No pneumothorax. IMPRESSION: 1. No CT evidence of pulmonary embolus. 2. Postoperative changes of the left breast. Mild dependent lung atelectasis also likely related to recent surgery. POS: [facility]
[2018-12-24] MEDS: Polyethylene Glycol 3350 17 GM Packet PO SCH (10:07)
[2018-12-24] MEDS ORDERED: Hydrocortisone Sod Succ/PF 100 mg/2 ml Vial IVP SCH (10:30)
--- NOTE | 2018-12-24 11:22 | CON ---
DATE OF CONSULTATION: HISTORY OF PRESENT ILLNESS: This is a 68-year-old female who underwent lumpectomy by Dr. Carter. Postop, she was hypotensive systolic blood pressure 76/48, pulse 80, saturations 100%, respiratory rate 19, temperature 99.8. The patient denies any other symptoms of cough, chest pain, shortness of breath, leg pain etc. She was seen by Dr. Carter 12/21/2018 after she was found to have a left breast mass. She lives in [place], has a daughter living over here. PAST MEDICAL HISTORY: Pertinent for chronic kidney disease, seeing at [facility]. History of hypertension, hypercalcemia, hyperlipidemia. PAST SURGICAL HISTORY: Cholecystectomy, bladder sling surgery, vaginal D and C, lumpectomy. MEDICATIONS: Home medicine Prolia 60, Xanax p.r.n., calcitriol 0.25, Tylenol, Benicar 20, Crestor 10. ALLERGIES: MULTIPLE INCLUDING LEVAQUIN, PHENOBARB, SCOPOLAMINE PATCH, ATROPINE, TAPE. SOCIAL HISTORY: Unremarkable. FAMILY HISTORY: Unremarkable. REVIEW OF SYSTEMS: Otherwise, 10-point negative. PHYSICAL EXAMINATION: GENERAL: She is in no acute distress. VITAL SIGNS: Blood pressure is still low 76/48, pulse 80, sats 100%, respirations 19, afebrile. CHEST: Decreased breath sounds. No wheezing. CARDIAC: Normal S1, S2. No gallops. ABDOMEN: No masses. LABORATORY DATA: White count 11,000. H and H are 11 and 35, platelet count is normal. D-dimer is 0.77. She had a chest x-ray and a CT chest done which shows no acute infiltrates. AST is 48. Albumin is 3.5. Urine was normal. Cortisol level was 10.5. Thyroid function was normal. BNP was 86. IMPRESSION: 1. Hypotension, relative adrenal insufficiency. 2. Status post lumpectomy. 3. Chronic kidney disease, hypercalcemia, hypertension, high cholesterol. I agree with the present management. I agree with IV fluids, volume replacement with albumin, stress dose of steroids. We will follow along in the MICU. Consultation note, 70 minutes, 50% direct patient care. Job ID: [id number]
[2018-12-24] MEDS ORDERED: Iopamidol 370 76% 100 ML VIAL ONE (12:40)
[2018-12-24] MEDS ORDERED: Fludrocortisone Acetate 0.1 MG TAB PO SCH (14:30)
[2018-12-24] MEDS ORDERED: Acetaminophen 325 MG TAB PO PRN (14:32)
[2018-12-24] MEDS ORDERED: Ondansetron PF 4 MG/2 ML Vial IVP PRN (14:32)
[2018-12-24] MEDS ORDERED: Calcium Carbonate 500 MG ChewTAB PO PRN (14:32)
[2018-12-24] MEDS ORDERED: Senokot S 8.6-50 MG TAB PO PRN (14:32)
[2018-12-24] MEDS ORDERED: Ondansetron ODT 4 MG TAB PO PRN (14:32)
--- NOTE | 2018-12-24 14:50 | PRG ---
DATE OF SERVICE: 12/24/2018 SUBJECTIVE: The patient denies any new complaints at this time. At times, she gets lightheaded and dizzy. She denies any syncopal episodes. No chest pain, shortness of breath, or palpitations reported. She is sitting on the chair at this time. PHYSICAL EXAMINATION: VITAL SIGNS: The patient is afebrile with a blood pressure of 72/56, pulse rate of 61, O2 saturation 100%. GENERAL: A 68-year-old female, in no apparent distress. LUNGS: Clear to auscultation bilaterally with few rhonchi at bases. No rales or wheezing. No accessory muscle use. HEART: S1, S2 present. Regular rate and rhythm. No rubs or gallops appreciated. No significant murmurs. ABDOMEN: Soft, nontender. Bowel sounds present. No rebound or guarding. EXTREMITIES: Trace edema in bilateral lower extremity. No calf tenderness. SKIN: Warm and dry. LYMPH NODES: No palpable lymph nodes in the neck. MEDICATIONS: Current medications were reviewed. The patient has been started on stress-dose steroids. She is currently receiving IV fluids at 150 mL/h. She also received one dose of albumin. REVIEW OF SYSTEMS: The patient denies any nausea or vomiting. No fever or chills. All other review of systems were reviewed and were found negative. IMPRESSION: 1. Hypotension, probably related to relative adrenal insufficiency. 2. History of hypertension, on Benicar. 3. Hyperlipidemia. 4. Urinary tract infection. 5. History of breast cancer, status post lumpectomy. 6. Hypokalemia. 7. Chronic kidney disease, stage 3. 8. Obesity with a body mass index of 32.8. SIGNIFICANT LABORATORY DATA: Creatinine 1.15 yesterday, 1.06 this morning. Sodium 138. Cortisol 10.5, TSH 1.1. WBC 11.6 with hemoglobin 11.7, platelet 205. Urinalysis showed 21 to 50 wbc's. CTA - No PE, Echo - normal EF. CXR by my review was negative. PLAN: The patient will be monitored in the intermediate care unit. We will continue IV hydrocortisone. We will also continue IV fluids. Recheck the labs in a.m. We will add fludrocortisone. Potassium has been replaced. We will recheck troponin. Fall precautions. Plan was discussed with the patient and the family at the bedside. Job ID: [id number] MTDD
[2018-12-24] MEDS: Hydrocortisone Sod Succ/PF 100 mg/2 ml Vial IVP SCH ×3 (15:02→23:50)
[2018-12-24 15:24] LABS: Anion Gap 13 mmol/L (10-20); BUN (Urea Nitrogen) 16 mg/dL (9.8-20.1); Calc. Creatinine Clearance 53 mL/min (70-130); Calcium 8.1 mg/dL (7.8-10.44); Carbon Dioxide 18 mmol/L (23-31); Chloride 113 mmol/L (98-107); Estimated GFR-MDRD 45; Glucose 121 mg/dL (80-115); Magnesium 1.7 mg/dL (1.6-2.6); Phosphorus 2.2 mg/dL (2.3-4.7); Potassium 4.5 mmol/L (3.5-5.1); Sodium 139 mmol/L (136-145)
[2018-12-24 15:30] LABS: Troponin I 0.013 ng/mL (< 0.028)
--- NOTE | 2018-12-24 15:31 | PRG ---
DATE OF SERVICE: 12/24/[address] Carter. SUBJECTIVE: The patient is a 68-year-old woman, who underwent breast lumpectomy yesterday followed by postoperative hypotension with systolic blood pressure in the 70s, although the pulse remained about 80. The patient was admitted in the Intermediate Care Unit. This morning, she is awake and alert. She has responded to fluids and hydrocortisone. OBJECTIVE: VITAL SIGNS: Vital signs had improved to 93/62. She has adequate urinary output. [place] Coma Scale has remained at 15. HEART: Reveals regular rate and rhythm. LUNGS: Clear to auscultation bilaterally. Breathing, regular and unlabored. Lumpectomy dressing was left in place as this was a pressure dressing. LABORATORY DATA: Laboratory findings this morning include a CBC with 11,600 white blood cells, hemoglobin and hematocrit stable at 11.7 and 35.9 respectively. Platelet count is 205,000. Metabolic profile; sodium 138, potassium 4.2, chloride is 113, bicarb 17, BUN 17, creatinine is 1.06, glucose 132. AST and ALT are 48 and 32 respectively. Random cortisol level is 10.5. IMPRESSION: 1. Postop day #1 status post breast lumpectomy. 2. Acute likely primary adrenal insufficiency, improving. PLAN: 1. Continue with current steroid therapy. 2. The patient will certainly need outpatient evaluation by an dinkey brakeman with regard to her primary adrenal insufficiency. 3. No further surgical indication at this time. Job ID: [id number]
[2018-12-24] MEDS: cefTRIAXone\\ROCEPHIN 1 GM in Sodium Chloride 0.9% 100 ML IVPB SCH (16:08)
[2018-12-24] MEDS: Sodium Bicarbonate 50 MEQ in Dextrose 5 %-0.45 % NaCl 1,000 ML IV SCH (16:09)
[2018-12-24] MEDS: Famotidine 20 MG TAB PO SCH (20:33)
[2018-12-24] MEDS: Enoxaparin Sodium 40 MG/0.4 ML SYRINGE SC SCH (20:33)
[2018-12-25] MEDS: Sodium Bicarbonate 50 MEQ in Dextrose 5 %-0.45 % NaCl 1,000 ML IV SCH (01:56)
[2018-12-25] MEDS: Hydrocortisone Sod Succ/PF 100 mg/2 ml Vial IVP SCH (06:12)
[2018-12-25 06:32] LABS: #Lymphocytes 0.4 thou/uL (1.20-3.40); #Monocytes 0.3 thou/uL (0.11-0.59); #Neutrophils 6.8 thou/uL (1.40-6.50); %Eosinophils 0.3 % (0.0-10.0); %Lymphocytes 5.4 % (21.0-51.0); %Monocytes 4.3 % (0.0-10.0); %Neutrophils 89.9 % (42.0-75.0); Mean Corpuscular HGB CONC 33.3 g/dL (32.0-36.0); Mean Corpuscular Hemoglobin 32.8 pg (27.0-31.0); Mean Corpuscular Volume 98.6 fL (78.0-98.0); Mean Platelet Volume 7.6 fL (7.4-10.4); Platelet Count 172 thou/uL (130-400); RBC Distribution Width 12.8 % (11.5-14.5); Red Blood Cell (RBC) Count 3.06 mill/uL (4.20-5.40); White Blood Cell (WBC) Count 7.6 thou/uL (4.8-10.8)
[2018-12-25 06:53] LABS: Phosphorus 1.3 mg/dL (2.3-4.7)
[2018-12-25 06:54] LABS: ALT (SGPT) 15 U/L (8-55); AST (SGOT) 17 U/L (5-34); Albumin 3.8 g/dL (3.4-4.8); Alkaline Phosphatase 36 U/L (40-150); Anion Gap 13 mmol/L (10-20); BUN (Urea Nitrogen) 13 mg/dL (9.8-20.1); Bilirubin, Total 0.2 mg/dL (0.2-1.2); Calc. Creatinine Clearance 70 mL/min (70-130); Calcium 8.2 mg/dL (7.8-10.44); Carbon Dioxide 18 mmol/L (23-31); Chloride 116 mmol/L (98-107); Estimated GFR-MDRD 62; Glucose 132 mg/dL (80-115); Potassium 3.9 mmol/L (3.5-5.1); Protein, Total 5.8 g/dL (6.0-8.3); Sodium 143 mmol/L (136-145)
[2018-12-25 06:57] LABS: Troponin I Less than 0.010 ng/mL (< 0.028)
[2018-12-25] MEDS ORDERED: Sodium Bicarbonate 50 MEQ in Dextrose 5 %-0.45 % NaCl 1,000 ML IV SCH (07:55)
[2018-12-25] MEDS ORDERED: Potassium Phosphate 15 MMOL in Sodium Chloride 0.9% 250 ML 250 ML IVPB SCH (08:00)
[2018-12-25] MEDS ORDERED: Fludrocortisone Acetate 0.1 MG TAB PO SCH (09:00)
[2018-12-25] MEDS: Polyethylene Glycol 3350 17 GM Packet PO SCH (09:37)
[2018-12-25] MEDS: K-Phos Neutral 250 MG TAB PO SCH ×3 (09:37→17:15)
[2018-12-25] MEDS: Famotidine 20 MG TAB PO SCH ×2 (09:38→21:06)
--- NOTE | 2018-12-25 10:44 | PRG ---
DATE OF SERVICE: 12/25/2018 SUBJECTIVE: This morning, she is much better. Hypotension resolved. She walked to the bathroom without any distress. OBJECTIVE: VITAL SIGNS: Blood pressure is 120/80, saturations 100% on room air, temperature 98, and pulse 62. CHEST: Decreased breath sounds. No wheezing. CARDIAC: Normal S1 and S2. No gallops. ABDOMEN: No masses. LABORATORY DATA: White count 7000, hemoglobin and hematocrit 10 and 32, and platelet count 172. Lytes are normal. Renal function has resolved. IMPRESSION: 1. Status post hypotension, resolved. 2. Relative adrenal insufficiency. 3. Status post lumpectomy. PLAN: Pulmonary teixeira, stress dose of steroids as outlined. She does not need any Florinef, however, got enough medication in the hydrocortisone. She can be probably transferred out in the next 24 to 48 hours. Job ID: [id number]
[2018-12-25] MEDS: Hydrocortisone 10 mg Tablet PO SCH ×2 (11:56→16:42)
[2018-12-25] MEDS: cefTRIAXone\\ROCEPHIN 1 GM in Sodium Chloride 0.9% 100 ML IVPB SCH (17:11)
[2018-12-25] MEDS ORDERED: cefTRIAXone\\ROCEPHIN 1 GM in Sodium Chloride 0.9% 100 ML IVPB SCH (18:00)
--- NOTE | 2018-12-25 19:31 | PDOC.PN ---
- Subjective Encounter Start Date: 12/25/18 Encounter Start Time: 10:30 Patient seen and examined for med mngt. BP better. No CP/nearsyncope. No new complaints. No overnight events - Objective Resuscitation Status - Order Detail: 12/24/18 14:32 Resuscitation Status Routine Resuscitation Status: FULL: Full Resuscitation MAR Reviewed: Yes Vital Signs & Weight: Vital Signs (12 hours) Temp Pulse Resp BP BP BP Pulse Ox 12/25/18 15:49 99 12/25/18 15:01 97.3 F L 68 16 128/76 99 12/25/18 11:51 98.7 F 12/25/18 07:56 111/68 100/62 110/63 12/25/18 07:40 98.6 F 12/25/18 07:39 100 Weight Weight 169 lb 1.6 oz Most Recent Monitor Data Heart Rate from ECG 74 NIBP 118/73 NIBP BP-Mean 88 Respiration from ECG 22 SpO2 100 I&O: 12/24/18 12/25/18 12/26/18 06:59 06:59 06:59 Intake Total 3640 3060 550 Output Total 460 4250 600 Balance 3180 -1190 -50 Result Diagrams: 12/25/18 05:34 12/25/18 05:34 EKG Reviewed by me: Yes (Tele SR) Phys Exam - Physical Examination Constitutional: NAD Neck: no JVD Respiratory: no wheezing, no rales, clear to auscultation bilateral Scat rhonchi Cardiovascular: RRR, no rub no heaves/pulsations Gastrointestinal: soft, non-tender, no distention, positive bowel sounds Musculoskeletal: no edema Neurological: non-focal, normal sensation, moves all 4 limbs Psychiatric: normal affect, A&O x 3 Skin: no rash Dx/Plan - Plan DVT proph w/lovenox, DVT proph w/SCDs IMPRESSION: 1. Hypotension, probably related to relative adrenal insufficiency. 2. History of hypertension. Benicar on hold. 3. Hyperlipidemia. 4. ?Urinary tract infection. cultures negative 5. History of breast cancer, status post lumpectomy. 6. Hypokalemia/hypophosphatemia 7. Chronic kidney disease, stage 3. 8. Obesity with a body mass index of 32.8. PLAN: DC IVF DC IV Hydrocortisone Start PO Hydrocortisone Endocrinology f/u as outpt AM labs Replace electrolytes Transfer to medical DC Atbx - cultures negative Microbiology 12/24/18 04:03 Urine truong catheter Urine Culture - Final NO GROWTH AT 36 HOURS Laboratory Tests 12/25/18 05:34 Phosphorus 1.3 L Review of Systems - Review of Systems Cardiovascular: negative: chest pain, palpitations, orthopnea, paroxysmal nocturnal dyspnea, edema, light headedness, other Gastrointestinal: negative: Nausea, Vomiting, Abdominal Pain, Diarrhea, Constipation, Melena, Hematochezia, Other - Medications/Allergies Allergies/Adverse Reactions: Allergies Allergy/AdvReac Type Severity Reaction Status Date / Time adhesive Allergy Rash Verified 12/23/18 20:30 atropine Allergy Verified 12/23/18 20:30 hyoscyamine Allergy Verified 12/23/18 20:30 levofloxacin Allergy MUSCLE AND Verified 12/23/18 20:30 JOINT PROBLEMS phenobarbital Allergy Verified 12/23/18 20:30 scopolamine Allergy Verified 12/23/18 20:30 Medications: Current Medications Acetaminophen (Tylenol) 650 mg PO Q4H PRN PRN Reason: Headache/Fever/Mild Pain (1-3) Calcium Carbonate (Tums) 1,000 mg PO Q4H PRN PRN Reason: Heartburn or Indigestion Enoxaparin Sodium (Lovenox) 40 mg SC 2100 [facility] Last Admin: 12/24/18 20:33 Dose: 40 mg Famotidine (Pepcid) 20 mg PO BID [facility] Last Admin: 12/25/18 09:38 Dose: 20 mg Hydrocortisone (Cortef) 10 mg PO TID[facility] Last Admin: 12/25/18 16:42 Dose: 10 mg Hydrocortisone (Cortef) 15 mg PO QAM-[facility] Hydrocortisone (Cortef) 10 mg PO 1200 [facility] Ondansetron HCl (Zofran Odt) 4 mg PO Q6H PRN PRN Reason: Nausea/Vomiting Ondansetron HCl (Zofran) 4 mg IVP Q6H PRN PRN Reason: Nausea/Vomiting Pantoprazole Sodium (Protonix) 40 mg PO DAILY [facility] Last Admin: 12/25/18 09:38 Dose: 40 mg Phosphorus (Kphos Neutral) 500 mg PO TID-[facility] Last Admin: 12/25/18 17:15 Dose: 500 mg Polyethylene Glycol (Miralax) 17 gm PO DAILY [facility] Last Admin: 12/25/18 09:37 Dose: 17 gm Senna/Docusate Sodium (Senokot S) 2 tab PO BID PRN PRN Reason: Constipation Sodium Chloride (Flush - Normal Saline) 10 ml IVF Q12HR [facility] Last Admin: 12/25/18 09:37 Dose: 10 ml Sodium Chloride (Flush - Normal Saline) 10 ml IVF PRN PRN PRN Reason: Saline Flush Last Admin: 12/25/18 06:12 Dose: 10 ml Tramadol HCl (Ultram) 50 mg PO QIDPRN PRN PRN Reason: Moderate Pain (4-6) Tramadol HCl (Ultram) 100 mg PO QIDPRN PRN PRN Reason: Severe Pain (7-10)
[2018-12-25] MEDS: Enoxaparin Sodium 40 MG/0.4 ML SYRINGE SC SCH (21:06)
--- NOTE | 2018-12-25 23:53 | PRG ---
DATE OF SERVICE: 12/25/2018 HISTORY OF PRESENT ILLNESS: The patient is a 68-year-old woman, who is postoperative day #2 status post breast lumpectomy. The patient developed acute postoperative distributive shock secondary to primary adrenal insufficiency. She was placed on steroids. Her blood pressure has since stabilized. She is currently off IV hydrocortisone. Blood pressure is maintained with Florinef. She is awake and alert. Urinary output is adequate. She is tolerating diet, having normal bowel and urinary function. PHYSICAL EXAMINATION: Her vital signs today include blood pressure 128/76, pulse 68, respiratory rate 16, temperature 97.3 degrees Fahrenheit, oxygen saturation 99% on room air. HEART: Reveals regular rate and rhythm. LUNGS: Clear to auscultation bilaterally. Breathing, regular nonlabored. ABDOMEN: Soft, nontender, nondistended. EXTREMITIES: Reveal 2 +radial and pedal pulses bilaterally. NEUROLOGIC: Reveals no focal deficits present. LABORATORY FINDINGS: Today include CBC with 7600 white blood cells, hemoglobin and hematocrit 10.0 and 30.2 respectively. Platelet count is 172,000. Metabolic profile; sodium 143, potassium 3.9, chloride is 116, bicarb is 18, BUN 13, creatinine is 0.90, glucose is 132, phosphorus is 1.3, magnesium is 2.0. IMPRESSIONS: 1. Postoperative day #2, status post breast lumpectomy. 2. Resolved acute primary adrenal insufficiency. 3. Acute hypophosphatemia. PLAN: Correct abnormal electrolytes. The patient is hemodynamically stable from surgical standpoint. She more than likely will be discharged home tomorrow to follow up with Dr. Carter in the Surgical Clinic. The patient has been advised to see an lieutenant general for workup of adrenal insufficiency. She indicated understanding of information given. I have answered her questions. Job ID: [id number]
[2018-12-26] MEDS ORDERED: diphenhydrAMINE 25 MG CAP PO SCH (01:00)
[2018-12-26 06:22] VITALS: BMI 33.9
[2018-12-26 06:30] LABS: #Eosinphils 0.2 thou/uL (0.0-0.7); #Lymphocytes 0.8 thou/uL (1.20-3.40); #Monocytes 0.7 thou/uL (0.11-0.59); #Neutrophils 8.4 thou/uL (1.40-6.50); %Basophils 0.1 % (0.0-1.0); %Eosinophils 1.7 % (0.0-10.0); %Lymphocytes 8.1 % (21.0-51.0); %Monocytes 7.1 % (0.0-10.0); Hemoglobin 10.5 g/dL (12.0-16.0); Mean Corpuscular Hemoglobin 32.4 pg (27.0-31.0); Mean Corpuscular Volume 97.9 fL (78.0-98.0); Platelet Count 181 thou/uL (130-400); RBC Distribution Width 12.8 % (11.5-14.5); Red Blood Cell (RBC) Count 3.24 mill/uL (4.20-5.40); White Blood Cell (WBC) Count 10.1 thou/uL (4.8-10.8)
[2018-12-26 06:48] LABS: Phosphorus 2.2 mg/dL (2.3-4.7)
[2018-12-26 06:50] LABS: ALT (SGPT) 15 U/L (8-55); AST (SGOT) 16 U/L (5-34); Albumin 3.9 g/dL (3.4-4.8); Alkaline Phosphatase 51 U/L (40-150); Anion Gap 11 mmol/L (10-20); BUN (Urea Nitrogen) 12 mg/dL (9.8-20.1); Bilirubin, Total 0.3 mg/dL (0.2-1.2); Calc. Creatinine Clearance 74 mL/min (70-130); Calcium 8.3 mg/dL (7.8-10.44); Carbon Dioxide 23 mmol/L (23-31); Chloride 112 mmol/L (98-107); Estimated GFR-MDRD 64; Globulin 2.2 g/dL (2.4-3.5); Glucose 103 mg/dL (80-115); Magnesium 1.9 mg/dL (1.6-2.6); Potassium 3.3 mmol/L (3.5-5.1); Protein, Total 6.1 g/dL (6.0-8.3); Sodium 143 mmol/L (136-145)
[2018-12-26] MEDS: K-Phos Neutral 250 MG TAB PO SCH (07:54)
[2018-12-26] MEDS: Polyethylene Glycol 3350 17 GM Packet PO SCH (07:54)
[2018-12-26] MEDS: Famotidine 20 MG TAB PO SCH (07:55)
[2018-12-26] MEDS ORDERED: Hydrocortisone 10 mg Tablet PO SCH ×2 (08:00→12:00)
--- NOTE | 2018-12-26 09:20 | PRG ---
DATE OF SERVICE: 12/26/2018 SUBJECTIVE: This morning, she is better. She is anxious because of blood pressure has gone up. She received 3 days of hydrocortisone for a relative adrenal insufficiency. OBJECTIVE: VITAL SIGNS: Sats 90% on room air, blood pressure 152/91, temperature 99, respiratory rate 18, and pulse 99. CHEST: Decreased breath sounds. No wheezing. CARDIAC: Normal S1 and S2. No gallops. LABORATORY DATA: Unremarkable. IMPRESSION: 1. Status post hypertension secondary to a relative adrenal insufficiency. 2. Status post lumpectomy. PLAN: Since her blood pressure is elevated, I would discontinue the Cortef. Restart home medication. Pulmonary follow at a distance. Please call as needed. Job ID: [id number]
--- NOTE | 2018-12-26 10:48 | OP ---
DATE OF PROCEDURE: 12/23/2018 PREOPERATIVE DIAGNOSES: Left breast cancer, 8 cm from the nipple, outer left breast 3 o'clock radian, deep, 1.7 x 1.1 x 1.4 cm by ultrasound criteria, ER positive 80%, [place] negative, HER-2, 3+, [place] grade 3 infiltrating ductal carcinoma, failed lymphoscintigraphy. POSTOPERATIVE DIAGNOSES: Left breast cancer, 8 cm from the nipple, outer left breast 3 o'clock radian, deep, 1.7 x 1.1 x 1.4 cm by ultrasound criteria, ER positive 80%, [place] negative, HER-2, 3+, [place] grade 3 infiltrating ductal carcinoma, failed lymphoscintigraphy, successful Lymphazurin blue injection, ligation of the sentinel node with touch prep negative. PROCEDURE: Radiology, ultrasound, needle localization lymphoscintigraphy in the operating room, Lymphazurin blue injection, sentinel node biopsy touch prep negative for metastasis, partial mastectomy utilizing needle localization technique with specimen. Mammography assured retrieval of localizing clip and wire. ANESTHESIA: General, local 0.25% Marcaine without epinephrine 60 mL mixed with 1% Xylocaine with epinephrine 30 mL, total volume used. DESCRIPTION OF PROCEDURE: The patient was taken to the operating room, where under general anesthesia, the periareolar area prepared with alcohol. Lymphazurin blue injected intradermal periareolar, lateral, left. Breast massaged and prepped with ChloraPrep, draped in routine fashion. Incision was made in the left axilla carried down to skin, subcutaneous tissue, and deep fascia. Although, Neoprobe did not work. Lymphoscintigraphy did not reveal any readings, a blue-stained node and 2 other smaller nodes were identified, retrieved, sent for touch prep, which was negative for metastasis. Good hemostasis was obtained with cautery. Subcutaneous tissue was approximated with 3-0 Monocryl, skin with subdermal 4-0 Monocryl, and [place] glue applied after infiltrating local anesthetic in the biopsy cavity and infiltrated local anesthetic in skin and subcutaneous tissue about the surgical site. Attention was then turned to partial mastectomy localizing wire into the far lateral left breast. A curvilinear lateral incision was made in skin and subcutaneous tissue, dissecting flaps of skin around the breast, dissecting the core breast tissue from around the localizing wire and the palpable mass. Wide excision, partial mastectomy undertaken resecting the specimen by marking margins with sutures for orientation submitted to mammography assuring retrieval of the marking clip and the wire and that was then submitted to pathology. Good hemostasis obtained with cautery. All counts were correct. Subcutaneous tissue was approximated with 3-0 Monocryl, skin with subdermal 4-0 Monocryl, and surrounding breast tissue anesthetized with local anesthetic mixture and biopsy cavity filled with the balance of the local anesthetic. Dermabond applied, Lazarus wraps applied. The patient tolerated the procedure well. Job ID: [id number]
[2018-12-26 11:16] VITALS: BP 149/90; TEMP 99.3
[2018-12-26] MEDS ORDERED: K-Phos Neutral 250 MG TAB PO SCH (12:00)
--- NOTE | 2018-12-26 13:13 | PRG ---
DATE OF SERVICE: 12/26/2018 SUBJECTIVE: Ms. Ontiveros is doing well today. Her blood pressure has normalized. She is actually slightly hypertensive, 152/91. Dr. Ramos has discontinued her hydrocortisone. She feels good. She has not had any pain. OBJECTIVE: LUNGS: Clear to auscultation. CARDIAC: Regular rate and rhythm. No murmur or gallop. ABDOMEN: Soft and nontender. BREASTS: Lazarus wrap around her breast had been removed. Her surgical site left breast looks healthy without wound problems. ASSESSMENT: Doing well, recovered adrenal insufficiency status post with surgical stress. PLAN: Discharge home today with home medications. Encouraged her to follow up with the claims correspondence clerk in the next few weeks to months. Job ID: [id number]
--- NOTE | 2018-12-27 04:04 | DIS ---
DATE OF ADMISSION: 12/23/2018 DATE OF DISCHARGE: 12/26/2018 DISCHARGE DIAGNOSES: 1. Left breast cancer. Pathology report pending. After wide local excision, after needle localization and sentinel node biopsy, 1.7 cm tumor, outer left breast, deep 8 cm from the nipple 3 o'clock Radian, ER positive 80%, [place] negative, HER-2 3+, [place] grade 3 infiltrating ductal carcinoma, failed lymphoscintigraphy, but successful sentinel node biopsy with Lymphazurin blue, touch prep negative for metastasis. 2. Acute renal insufficiency, necessitating hospitalization. 3. Mild chronic kidney disease. 4. Hypertension. The patient resides in [place]. HISTORY: A 68-year-old female with screening mammogram detected left breast density, underwent biopsy revealing infiltrating ductal carcinoma, seen by Dr. Humphries, referred to sc for definitive excision. This was less than 2 cm HER-2 positive, and she underwent wide local excision and sentinel node biopsy after given options. Lymphoscintigraphy was not productive. Lymphazurin blue injection identified in sentinel node. Touch prep was negative. Final pathology pending. The patient intraoperatively and postoperatively had hypotension. She is aggressively hydrated with her past history of chronic kidney disease. Preoperative hemoglobin was 1.24, discharge 0.88. BUN normal. The patient underwent a CTA that was negative for embolus. Cortisol levels obtained in the morning and after surgery, it was 10. She was given hydrocortisone her blood pressure normalized. Dr. Ramos stopped her medications after 48 hours of treatment. She is to follow up with tax investigator in the future. She will follow up with Dr. Yandel Chairez later this week. Job ID: [id number]
--- NOTE | 2018-12-28 12:45 | EKG ---
Test Reason : Blood Pressure : / mmHG Vent. Rate : 082 BPM Atrial Rate : 082 BPM P-R Int : 180 ms QRS Dur : 088 ms QT Int : 410 ms P-R-T Axes : 072 -24 009 degrees QTc Int : 479 ms Normal sinus rhythm Nonspecific T wave abnormality Prolonged QT Abnormal ECG When compared with ECG of 23-DEC-2018 18:29, (Unconfirmed) No significant change was found Confirmed by DR. Ruthy MEEKS ([id number]) on 12/28/2018 12:44:33 PM Referred By: Confirmed By:DR. Ruthy MEEKS
== END 2018-12-26 12:35 | disposition home or self-care (01) | DRG 579 ==
LOC: SDC 06:26 → IMCU/EMU 19:15 → SURG A 12-25 15:09
PROVIDERS: ADMIT Specialist; ATTEND Specialist
PROC: 07B60ZX Excision of Left Axillary Lymphatic, Open Approach, Diagnostic (ICD-10-PCS; principal; 2018-12-23)
PROC: 0HBU0ZZ Excision of Left Breast, Open Approach (ICD-10-PCS; 2018-12-23)
PROC: 0HBU3ZX Excision of Left Breast, Percutaneous Approach, Diagnostic (ICD-10-PCS; 2018-12-23)
DX: C50.812 Malignant neoplasm of overlapping sites of left female breast (principal); T81.19XA Other postprocedural shock, initial encounter; N25.81 Secondary hyperparathyroidism of renal origin; E27.1 Primary adrenocortical insufficiency; M81.0 Age-related osteoporosis without current pathological fracture; F41.9 Anxiety disorder, unspecified; I12.9 Hypertensive chronic kidney disease with stage 1 through stage 4 chronic kidney disease, or unspecified chronic kidney disease; N18.3 Chronic kidney disease, stage 3 (moderate); Z01.818 Encounter for other preprocedural examination; E66.9 Obesity, unspecified; Z68.32 Body mass index [BMI] 32.0-32.9, adult; E83.52 Hypercalcemia; E78.5 Hyperlipidemia, unspecified; E87.6 Hypokalemia; Z17.0 Estrogen receptor positive status [ER+]; E83.39 Other disorders of phosphorus metabolism; Z88.8 Allergy status to other drugs, medicaments and biological substances; Z88.1 Allergy status to other antibiotic agents; Z79.899 Other long term (current) drug therapy; Y83.8 Other surgical procedures as the cause of abnormal reaction of the patient, or of later complication, without mention of misadventure at the time of the procedure; Y92.230 Patient room in hospital as the place of occurrence of the external cause
CPT/HCPCS: 19285; 36415; 71045; 71046; 71275; 76098; 78195; 80048; 80053; 81001; 82533; 83735; 83880; 84100; 84443; 84484; 85025; 85379; 87086; 88307; 88333; 88334; 88342; 93005; 93010; 93306; 94760; 99204; A9541; G0463; J0131; J0696; J1650; J1720; J1885; J2001; J2405; J2704; J3010; J3490; J7042; J7050; P9045; P9047; Q0163; Q9967; Q9968; S0020

== ENCOUNTER 2019-01-06 06:54 | Day surgery (SDC) | payer MEDICARE ==
--- NOTE | 2019-01-05 10:06 | HP ---
HISTORY OF PRESENT ILLNESS: Jena Ontiveros is a 68-year-old female, followed up today after left partial mastectomy, lymphoscintigraphy, ultrasound-guided needle localization, and Lymphazurin blue injection for left breast cancer. The patient visits from [place], staying with her daughter in [place], [place] while she undergoes treatment for left breast cancer. Screening mammogram on 12/06/2018 and ultrasound revealed a 1.3 cm spiculated lesion in the upper outer left breast at 3 o'clock [place] and a small adjacent fibroadenoma and a small 6 mm node. Biopsy on 12/08/2018 revealed ultrasound-guided revealed infiltrating ductal carcinoma, ER positive 80%, CA negative, HER-2 of 3+, [place] grade 3. I had discussion of treatment options. Decision was made for breast preservation. The patient underwent on 12/23/2018 lymphoscintigraphy, radiology ultrasound-directed needle localization with subsequent partial mastectomy, sentinel node biopsy with touch prep negative for metastasis. Final pathology reveals infiltrating ductal carcinoma of left breast, 3 lymph nodes involved with metastatic cancer, invasive poorly differentiated ductal carcinoma, grade 3 of 3, 2.3 cm tumor with DCIS, comedo, cribriform, micropapillary intermediate to high-grade component, all margin negative for invasive carcinoma and DCIS. Tumor size 2.3 x 2 x 1.5 cm. T2 N0 M0. It should note all margins are free. Note, intraoperatively and postoperatively, the patient experienced hypotension. She received aggressive fluid resuscitation, cortisol level was 10, which is unexpectedly low. She received steroids and her blood pressure improved. Further discussion revealed that last year when she had hip surgery, she had similar incident, and then she had no other incident with a dental procedure. The patient's blood pressure returned to normal within 36 hours of steroid administration. She does have chronic kidney disease with hydration, this improved. The patient was discharged home without further medications and she has been scheduled to see an social secretary, Dr. Jaramillo. I personally discussed with Dr. Jaramillo. Plan is to give her 4 mg of Decadron preoperatively and then she will see Dr. Jaramillo for a course and stress test and further evaluation. She does not need to be on daily replacement that she functions well without that. She does have some fluid retention that she is working through. Her blood pressure is 191/96 and I have advised her to see her primary care physician to discuss this. PAST MEDICAL HISTORY: 1. Arthritis. 2. Left breast cancer. 3. Elevated cholesterol. 4. Headaches. 5. History of diverticulosis. 6. Chronic kidney disease, mild. PAST SURGICAL HISTORY: 1. Laparoscopic cholecystectomy. 2. Bladder sling. 3. Left hip surgery in 2018. 4. Dental procedure more recent on 12/23/2018. 5. Left partial mastectomy and sentinel node biopsy. REVIEW OF SYSTEMS: Ten-point noncontributory. PHYSICAL EXAMINATION: VITAL SIGNS: 169, 60 inches, 191/96, 79, and temperature 98.2 degrees. HEAD, EARS, EYES, NOSE, AND THROAT: Unremarkable. LUNGS: Clear to auscultation. CARDIAC: Regular rhythm without murmur or gallop. ABDOMEN: Soft and nontender. BREASTS: Surgical site left breast has well healed. Good cosmetic result. Axillary wound looks good. ASSESSMENT AND PLAN: 1. Left breast cancer. Plan MediPort placement. Risks and benefits discussed and consents. 2. Hypertension. 3. Adrenal insufficiency as discussed above. Job ID: [id number]
[2019-01-05 11:48] VITALS: BMI 31.2
[2019-01-06] MEDS ORDERED: Dexamethasone 4 mg/ml Vial ONE (07:49)
[2019-01-06] MEDS ORDERED: Bupivacaine HCl 0.5%/Epinephrine 1:200,000/PF 30 ml Vial ONE (09:10)
[2019-01-06] MEDS ORDERED: Lidocaine 2% PF 5 ML VIAL ONE (09:10)
[2019-01-06] MEDS ORDERED: Fentanyl 100 MCG/2 ML VIAL ONE (09:15)
[2019-01-06] MEDS ORDERED: PROPOFOL 40 ML ONE (09:15)
--- NOTE | 2019-01-06 10:43 | RAD ---
SINGLE VIEW OF THE CHEST: Comparison: 12-22-18 History: Mediport placement. Left breast cancer. FINDINGS: Single view of the chest shows a cardiomediastinal silhouette which is upper limits of normal in size . There is a right sided Mediport with its tip in the superior vena cava. No pneumothorax is seen. Ca lcified granuloma projects over the right upper lobe. No consolidation or pleural effusion are seen. IMPRESSION: Status post Mediport placement without evidence of complication. POS: C
--- NOTE | 2019-01-06 10:53 | OP ---
DATE OF PROCEDURE: 01/06/2019 PREOPERATIVE DIAGNOSES: Left breast cancer, status post partial mastectomy, sentinel node biopsy. Seroma, left axilla. Previous hypotension intraoperatively and postoperatively with diagnosis of adrenal insufficiency with Endocrinology followup evaluation pending. POSTOPERATIVE DIAGNOSES: Left breast cancer, status post partial mastectomy, sentinel node biopsy. Seroma, left axilla. Previous hypotension intraoperatively and postoperatively with diagnosis of adrenal insufficiency with Endocrinology followup evaluation pending. PROCEDURES PERFORMED: Right subclavian vein low-profile MediPort, fluoroscopy use. Aspiration of 90 mL yellow fluid, left axillary seroma. Note that administration of Decadron 4 mg IV preoperatively to prevent adrenal crisis. ANESTHESIA: TIVA with local of 0.5% Marcaine with epinephrine 30 mL mixed with 2% Xylocaine 10 mL. FLUOROSCOPY: Used. ULTRASOUND: Not necessary. DESCRIPTION OF PROCEDURE: The patient was taken to the operating room, where under intravenous sedation in supine position, chest and neck were prepared with ChloraPrep and draped in routine fashion. Local anesthetic mixture was infiltrated into the skin and subcutaneous tissue about the operative site. Infraclavicular approach used to cannulate the right subclavian vein through the J-wire removing the catheter, making a skin incision, creating a subcutaneous pocket using cautery for hemostasis. Dilator and Peel-Away sheath placed with J-wire into the superior vena cava. Dilator and J-wire were removed. Catheter was placed with Peel-Away sheath. Peel-Away sheath removed. Fluoroscopic images used to properly position the tip of the catheter into the superior vena cava and catheter tailored to length, connected to the MediPort, secured in the subcutaneous pocket with interrupted suture of 3-0 Prolene. Subcutaneous tissue was approximated with 3-0 Monocryl, skin with subdermal 4-0 Monocryl, and [place] glue applied. MediPort aspirated with a White needle, aspirated blood, and flushed with heparinized saline solution. Fluoroscopic images revealed good line and MediPort placement. Alcohol prep was used in the left axilla and 90 mL of yellow serous fluid aspirated, decompressing the left axillary seroma. The patient tolerated the procedure well. Job ID: [id number]
[2019-01-06] MEDS ORDERED: Ondansetron PF 4 MG/2 ML Vial ONE (15:33)
[2019-01-06] MEDS ORDERED: Lidocaine 1% PF 5 ML VIAL ONE (15:33)
[2019-01-06] MEDS ORDERED: PROPOFOL 200 MG/20 ML VIAL ONE (15:33)
== END 2019-01-06 10:55 | disposition home or self-care (01) ==
LOC: SDC 06:54
PROVIDERS: ATTEND Specialist
PROC: 0JH63WZ Insertion of Totally Implantable Vascular Access Device into Chest Subcutaneous Tissue and Fascia, Percutaneous Approach (ICD-10-PCS; principal; 2019-01-06)
DX: C50.912 Malignant neoplasm of unspecified site of left female breast (principal); C77.9 Secondary and unspecified malignant neoplasm of lymph node, unspecified; E27.40 Unspecified adrenocortical insufficiency; M19.90 Unspecified osteoarthritis, unspecified site; E78.00 Pure hypercholesterolemia, unspecified; I12.9 Hypertensive chronic kidney disease with stage 1 through stage 4 chronic kidney disease, or unspecified chronic kidney disease; N18.2 Chronic kidney disease, stage 2 (mild); Z17.0 Estrogen receptor positive status [ER+]; Z79.899 Other long term (current) drug therapy; Z88.1 Allergy status to other antibiotic agents; Z88.8 Allergy status to other drugs, medicaments and biological substances; Z91.048 Other nonmedicinal substance allergy status
CPT/HCPCS: 36561; 71045; C1788; J0670; J1100; J1642; J2001; J2704; J3010

== ENCOUNTER 2019-05-15 14:07 | Outpatient (CLI) | payer MEDICARE | END 2019-05-15 14:08 | disposition home or self-care (01) | LOC: ULT 14:07 | PROVIDERS: ATTEND Internal Medicine Hematology & Oncology | DX: Z51.11 Encounter for antineoplastic chemotherapy (principal); C50.812 Malignant neoplasm of overlapping sites of left female breast; I08.1 Rheumatic disorders of both mitral and tricuspid valves; Z79.899 Other long term (current) drug therapy | CPT/HCPCS: 93306 ==

== ENCOUNTER 2019-08-10 12:48 | Outpatient (CLI) | payer MEDICARE | END 2019-08-10 12:49 | disposition home or self-care (01) | LOC: ULT 12:48 | PROVIDERS: ATTEND Internal Medicine Hematology & Oncology | DX: Z51.11 Encounter for antineoplastic chemotherapy (principal); C50.812 Malignant neoplasm of overlapping sites of left female breast; Z79.899 Other long term (current) drug therapy | CPT/HCPCS: 93306 ==

== ENCOUNTER 2019-11-03 12:41 | Outpatient (CLI) | payer MEDICARE | END 2019-11-03 12:42 | disposition home or self-care (01) | LOC: ULT 12:41 | PROVIDERS: ATTEND Internal Medicine Hematology & Oncology | DX: Z51.11 Encounter for antineoplastic chemotherapy (principal); C50.812 Malignant neoplasm of overlapping sites of left female breast; Z79.899 Other long term (current) drug therapy; I08.1 Rheumatic disorders of both mitral and tricuspid valves | CPT/HCPCS: 93306 ==

== ENCOUNTER 2019-12-19 09:40 | Outpatient (CLI) | payer MEDICARE ==
--- NOTE | 2019-12-20 10:12 | MMO ---
Bilateral MAMMO Bilat Screen [facility]. CLINICAL HISTORY: Patient is 69 years old and is seen for diagnostic exam. The patient has no family history of breast cancer. The patient has a history of invasive ductal left breast carcinoma in November,. The patient has a history of left Lumpectomy in December, - malignant and left Ultrasound Guided Core Biopsy in November, - malignant. VIEWS: The views performed were: bilateral craniocaudal with tomosynthesis; bilateral mediolateral oblique with tomosynthesis; and bilateral mediolateral with tomosynthesis. FILMS COMPARED: The present examination has been compared to prior imaging studies performed at [facility] on 01/31/2015, 08/27/2017, 12/06/2018 and 12/08/2018. This study has been interpreted with the assistance of computer-aided detection. MAMMOGRAM FINDINGS: There are scattered fibroglandular densities. Finding 1: There is a new post-surgical scar seen in the upper-outer region of the left breast. Finding 2: There is an area of skin thickening seen in the lower-inner region of the left breast. There are no suspicious masses, suspicious calcifications, or new areas of architectural distortion. IMPRESSION: THERE IS NO MAMMOGRAPHIC EVIDENCE OF MALIGNANCY. A ROUTINE FOLLOW-UP MAMMOGRAM IN 1 YEAR IS RECOMMENDED. THE RESULTS OF THIS EXAM WERE SENT TO THE PATIENT. ACR BI-RADS Category 2 - Benign finding MAMMOGRAPHY NOTE: 1. A negative mammogram report should not delay a biopsy if a dominant of clinically suspicious mass is present. 2. Approximately 10% to 15% of breast cancers are not detected by mammography. 3. Adenosis and dense breasts may obscure an underlying neoplasm. Reported by: JOSE MARTIN CONTEH MD Electonically Signed: [id number]
== END 2019-12-19 09:41 | disposition home or self-care (01) ==
LOC: BICMAMMO 09:40
PROVIDERS: ATTEND Internal Medicine
DX: Z08 Encounter for follow-up examination after completed treatment for malignant neoplasm (principal); Z85.3 Personal history of malignant neoplasm of breast; Z98.890 Other specified postprocedural states
CPT/HCPCS: 77063; 77067

== ENCOUNTER 2020-12-20 08:25 | Outpatient (CLI) | payer MEDICARE ==
--- NOTE | 2020-12-20 08:55 | MMO ---
Bilateral MAMMO Bilat Diag [facility]. CLINICAL HISTORY: Patient is 70 years old and is seen for diagnostic exam. The patient has no family history of breast cancer. The patient has a history of invasive ductal left breast carcinoma in November,. The patient has a history of left Lumpectomy in December, - malignant and left Ultrasound Guided Core Biopsy in November, - malignant. VIEWS: The views performed were: bilateral craniocaudal with tomosynthesis; bilateral mediolateral oblique with tomosynthesis; and bilateral mediolateral with tomosynthesis. FILMS COMPARED: The present examination has been compared to prior imaging studies performed at [facility] on 12/19/2019, and at [facility] on 08/27/2017, 12/06/2018 and 12/08/2018. This study has been interpreted with the assistance of computer-aided detection. MAMMOGRAM FINDINGS: There are scattered fibroglandular densities. Finding 1: There is a stable area of skin thickening and a stable post operative change seen in the left breast. Finding 2: There are stable benign appearing calcifications seen in both breasts. There are also vascular calcifications. Right subareoalr nodule is stable. There are no suspicious masses, suspicious calcifications, or new areas of architectural distortion. IMPRESSION: THERE IS NO MAMMOGRAPHIC EVIDENCE OF MALIGNANCY. A ROUTINE FOLLOW-UP MAMMOGRAM IN 1 YEAR IS RECOMMENDED. THE RESULTS OF THIS EXAM WERE SENT TO THE PATIENT. ACR BI-RADS Category 2 - Benign finding MAMMOGRAPHY NOTE: 1. A negative mammogram report should not delay a biopsy if a dominant of clinically suspicious mass is present. 2. Approximately 10% to 15% of breast cancers are not detected by mammography. 3. Adenosis and dense breasts may obscure an underlying neoplasm. Reported by: ASTER MADRID MD Electonically Signed: [id number]
== END 2020-12-20 08:26 | disposition home or self-care (01) ==
LOC: BICMAMMO 08:25
PROVIDERS: ATTEND Internal Medicine Hematology & Oncology
DX: Z08 Encounter for follow-up examination after completed treatment for malignant neoplasm (principal); Z85.3 Personal history of malignant neoplasm of breast; Z98.890 Other specified postprocedural states
CPT/HCPCS: 77066; G0279

== ENCOUNTER 2021-12-17 08:21 | Outpatient (CLI) | payer MEDICARE | END 2021-12-17 08:22 | disposition home or self-care (01) | LOC: NM 08:21 | PROVIDERS: ATTEND Otolaryngology Otolaryngic Allergy | DX: E21.3 Hyperparathyroidism, unspecified (principal); D35.1 Benign neoplasm of parathyroid gland | CPT/HCPCS: 78072; A9500 ==

== ENCOUNTER 2021-12-24 10:18 | Outpatient (CLI) | payer MEDICARE | END 2021-12-24 10:19 | disposition home or self-care (01) | LOC: BICMAMMO 10:18 | PROVIDERS: ATTEND Internal Medicine Hematology & Oncology | DX: Z08 Encounter for follow-up examination after completed treatment for malignant neoplasm (principal); Z85.3 Personal history of malignant neoplasm of breast | CPT/HCPCS: 77066; G0279 ==

== ENCOUNTER 2022-10-27 14:34 | Outpatient (CLI) | payer MEDICARE | END 2022-10-27 14:35 | disposition home or self-care (01) | LOC: ULT 14:34 | PROVIDERS: ATTEND Internal Medicine Nephrology | DX: N18.30 Chronic kidney disease, stage 3 unspecified (principal); N28.89 Other specified disorders of kidney and ureter; R93.429 Abnormal radiologic findings on diagnostic imaging of unspecified kidney | CPT/HCPCS: 76770 ==

== ENCOUNTER 2022-12-24 20:13 | Emergency (ER) | payer MEDICARE ==
[2022-12-24 21:04] LABS: #Eosinphils 0.1 thou/uL (0.0-0.7); #Lymphocytes 1.1 thou/uL (1.20-3.40); #Monocytes 0.6 thou/uL (0.11-0.59); #Neutrophils 5.2 thou/uL (1.40-6.50); %Basophils 0.5 % (0.0-1.0); %Eosinophils 2.1 % (0.0-10.0); %Lymphocytes 15.7 % (21.0-51.0); %Neutrophils 72.7 % (42.0-75.0); Hemoglobin 12.7 g/dL (12.0-16.0); Mean Corpuscular HGB CONC 33.4 g/dL (32.0-36.0); Mean Corpuscular Hemoglobin 32.3 pg (27.0-31.0); Mean Corpuscular Volume 96.8 fl (78.0-98.0); Mean Platelet Volume 6.9 fL (7.4-10.4); Platelet Count 233 10x3/uL (130-400); RBC Distribution Width 12.9 % (11.5-14.5); Red Blood Cell (RBC) Count 3.92 mill/uL (4.20-5.40); White Blood Cell (WBC) Count 7.1 10x3/uL (4.8-10.8)
[2022-12-24 21:25] LABS: ALT (SGPT) 11 U/L (8-55); AST (SGOT) 19 U/L (5-34); Albumin 4.5 g/dL (3.4-4.8); Alkaline Phosphatase 57 U/L (40-110); Anion Gap 13 mmol/L (10-20); BUN (Urea Nitrogen) 14 mg/dL (9.8-20.1); Bilirubin, Total 0.6 mg/dL (0.2-1.2); Calc. Creatinine Clearance 0 mL/min (70-130); Calcium 9.6 mg/dL (7.8-10.44); Carbon Dioxide 25 mmol/L (23-31); Chloride 107 mmol/L (98-107); Estimated GFR 53; Glucose 96 mg/dL (83-110); Protein, Total 7.5 g/dL (5.8-8.1); Sodium 141 mmol/L (136-145)
[2022-12-24] MEDS ORDERED: hydrALAZINE 20 MG/ML VIAL ONE (22:44)
[2022-12-24] MEDS ORDERED: Acetaminophen 500 MG TAB ONE (22:44)
== END 2022-12-25 00:31 | disposition home or self-care (01) ==
LOC: ERS 20:13
DX: I67.1 Cerebral aneurysm, nonruptured (principal); I12.9 Hypertensive chronic kidney disease with stage 1 through stage 4 chronic kidney disease, or unspecified chronic kidney disease; N18.30 Chronic kidney disease, stage 3 unspecified
CPT/HCPCS: 70450; 70496; 80053; 84484; 85025; 93005; 96374; J0360

== ENCOUNTER 2023-01-08 10:22 | Outpatient (CLI) | payer MEDICARE | END 2023-01-08 10:23 | disposition home or self-care (01) | LOC: BICMAMMO 10:22 | PROVIDERS: ATTEND Internal Medicine Hematology & Oncology | DX: Z08 Encounter for follow-up examination after completed treatment for malignant neoplasm (principal); Z85.3 Personal history of malignant neoplasm of breast | CPT/HCPCS: 77066; G0279 ==

== ENCOUNTER 2023-01-15 08:12 | Outpatient (CLI) | payer MEDICARE | END 2023-01-15 08:13 | disposition home or self-care (01) | LOC: SCSMRI 08:12 | PROVIDERS: ATTEND Physician Assistant | DX: I72.0 Aneurysm of carotid artery (principal) | CPT/HCPCS: 70553 ==

== ENCOUNTER 2023-03-08 16:25 | Emergency (ER) | payer MEDICARE ==
[2023-03-08 16:54] LABS: #Eosinphils 0.1 thou/uL (0.0-0.7); #Lymphocytes 1.1 thou/uL (1.20-3.40); #Monocytes 0.9 thou/uL (0.11-0.59); #Neutrophils 6.2 thou/uL (1.40-6.50); %Basophils 0.4 % (0.0-1.0); %Eosinophils 1.6 % (0.0-10.0); %Lymphocytes 13.1 % (21.0-51.0); %Monocytes 10.9 % (0.0-10.0); %Neutrophils 74.1 % (42.0-75.0); Hemoglobin 13.7 g/dL (12.0-16.0); Mean Corpuscular HGB CONC 33.7 g/dL (32.0-36.0); Mean Corpuscular Hemoglobin 32.9 pg (27.0-31.0); Mean Corpuscular Volume 97.4 fl (78.0-98.0); Mean Platelet Volume 7.3 fL (7.4-10.4); Platelet Count 261 10x3/uL (130-400); RBC Distribution Width 13.2 % (11.5-14.5); Red Blood Cell (RBC) Count 4.15 mill/uL (4.20-5.40); White Blood Cell (WBC) Count 8.4 10x3/uL (4.8-10.8)
[2023-03-08 17:21] LABS: ALT (SGPT) 13 U/L (8-55); AST (SGOT) 22 U/L (5-34); Albumin 4.9 g/dL (3.4-4.8); Alkaline Phosphatase 70 U/L (40-110); Anion Gap 15 mmol/L (10-20); BUN (Urea Nitrogen) 27 mg/dL (9.8-20.1); Bilirubin, Total 0.3 mg/dL (0.2-1.2); Calc. Creatinine Clearance 0 mL/min (70-130); Calcium 10.6 mg/dL (7.8-10.44); Carbon Dioxide 23 mmol/L (23-31); Chloride 105 mmol/L (98-107); Estimated GFR 36; Globulin 2.7 g/dL (2.4-3.5); Glucose 119 mg/dL (83-110); Potassium 4.4 mmol/L (3.5-5.1); Protein, Total 7.6 g/dL (5.8-8.1); Sodium 139 mmol/L (136-145)
== END 2023-03-08 18:15 | disposition home or self-care (01) ==
LOC: ERS 16:25
DX: K62.5 Hemorrhage of anus and rectum (principal); I12.9 Hypertensive chronic kidney disease with stage 1 through stage 4 chronic kidney disease, or unspecified chronic kidney disease; N18.30 Chronic kidney disease, stage 3 unspecified; E78.5 Hyperlipidemia, unspecified
CPT/HCPCS: 36415; 80053; 83605; 84484; 85025; 86850; 86900; 86901; 99283

== ENCOUNTER 2023-12-27 23:18 | Emergency (ER) | payer MEDICARE ==
[2023-12-28] MEDS ORDERED: Iopamidol-370 76% 500 ML MDV (1 ML CHARGE) ONE (10:23)
== END 2023-12-28 04:56 | disposition home or self-care (01) ==
LOC: ERS 23:18
DX: Z04.3 Encounter for examination and observation following other accident (principal); I12.9 Hypertensive chronic kidney disease with stage 1 through stage 4 chronic kidney disease, or unspecified chronic kidney disease; N18.30 Chronic kidney disease, stage 3 unspecified; W18.30XA Fall on same level, unspecified, initial encounter
CPT/HCPCS: 70450; 70496